=== PATIENT | male | born 1955 | race Two or more races ===

== ENCOUNTER 2024-04-21 11:34 | Inpatient (IN) | payer BC, MEDICAID ==
[~2024-04-21] VITALS: Ht 180.3 cm; Wt 147.4 kg
[~2024-04-21 11:34] MED LIST: IPRA0.00 IN; SEMA1INJ2 SC
--- NOTE | 2024-04-21 11:49 | ED.PDOC ---
GI ASSESSMENT HPI Comments HPI: Poor Historian. 67-year-old male brought in by ambulance from home for evaluation of two day history of right-sided abdominal pain with nausea but no vomiting. He had some brown diarrhea in the last two days as well. He stopped taking his Lasix two days ago. He said he forgot. Patient does not use oxygen at home. Pre- hospital course vital signs were stable. EKG rhythm run by EMS was also unremarkable. Last bowel movement was this morning brown in color. Past Medcial History: Hypertension hyperlipidemia, CHF Past Surgical History: REVIEW OF SYSTEMS: CONSTITUTIONAL: Denies acute: fever, diaphoresis, chills, HEAD: Denies acute: headache, photophobia Eyes: Denies acute: Double vision, vision loss, eye pain, eye discharge. EARS: Denies acute: tinnitus, hearing loss, ear discharge, ear pain, THROAT: Denies acute: sore throat, swelling, difficulty swallowing , pain with swallowing, change in voice. NECK: Denies acute: neck pain, neck swelling, stiff neck. HEART: Denies acute : chest pain, palpitations, LUNGS: Denies acute: SOB, wheezing, cough, hemoptysis ABDOMEN: Denies acute: , Vomiting, melena , hematemesis, hematochezia SKIN: Denies acute: rash, redness, lesions, itchiness. EXTREMITIES: Denies acute: calf pain, numbness, tingling, weakness, denies pain in extremity. Denies acute: Low back pain. Neuro: Denies acute: focal neurological deficit, motor or sensory focal neurological deficit, tremors, seizure like activity, confusion, dizziness, change in mental status, loss of bowel or bladder function, cauda equina like symptoms. : Denies acute: dysuria, hematuria, flank pain, increase in urinary frequency. PSYCH: Denies acute: hallucination, suicidal ideation, homicidal ideation. PHYSICAL EXAM: General: no acute distress, awake and alert. Head: normocephalic, atraumatic. Neck: supple, trachea is midline, no swelling. Throat: Normal phonation. Eyes:, no erythema, no purulent discharge, no proptosis, no icterus. Heart: regular rate, regular rhythm, no significant murmur appreciated. Lungs: no apparent respiratory distress, Able to speak in full sentences. No wheezing, no rhonchi, no crackles. No stridors Clear to auscultation bilaterally. Abdomen: non tender to palpation, non distended, soft, no guarding, no rebound, + bowel sounds. Neuro: Awake, Alert, oriented to name, self, situation, follows commands GCS=15. Speech is normal. Skin: no petechia, no purpura, no cyanosis, non-pale, not jaundice. Lower extremities: --trace b/l- Pitting edema no deformity, no focal swelling, no calf TTP. Makes eye contact. moves all four extremities. Face: no apparent facial droop. Chief Complaint: Abdominal Pain Time Seen by MD: 11:45 Reviewed Notes: Nurses Notes, Medications, Allergies Allergies: Coded Allergies: NO KNOWN ALLERGIES (Unverified , 04/21/24) Information Source: Patient Was a procedure done? Was a procedure done?: No GI differential Dx Differential Diagnosis: Other (DDX include but not limited to diverticulitis, colitis, gastroenteritis, acute abdomen, SBO, enteritis, constipation, volvulus, appendicitis, Gallbladder disease, choledocolithiasis, ascending cholangitis, pancreatitis, intraAbdominal mass/neoplasm, hepatitis, UTI, pylonephritis, kidney stone, aneurysm, dissection, Inflammatory bowel disease, gastroparesis, ischemic bowel.) X-Ray, Labs, Meds, VS Vital Signs Date Time Temp Pulse Resp B/P (MAP) Pulse Ox O2 Delivery O2 Flow Rate FiO2 04/21/24 18:00 97.6 66 20 145/84 (104) 96 97.6 04/21/24 13:23 118/58 04/21/24 12:52 98.6 62 17 118/58 (78) 95 98.6 04/21/24 12:52 62 17 95 Room Air 04/21/24 11:46 98.4 82 24 111/89 (96) 97 Lab Test 04/21/24 15:50 04/21/24 13:23 04/21/24 11:55 Range/Units Troponin I High Sensitivity 41 44 43 </=54 ng/L White Blood Count 10.1 4.4-10.8 10^3/uL Red Blood Count 5.24 4.5-5.90 10^6/uL Hemoglobin 15.7 13.5-17.5 g/dL Hematocrit 46.8 41.0-53.0 % Mean Corpuscular Volume 89.3 80.0-100.0 fL Mean Corpuscular Hemoglobin 29.9 28.0-32.0 pg Mean Corpuscular Hemoglobin Concent 33.5 32.0-36.0 g/dL Red Cell Distribution Width 14.9 H 11.8-14.3 % Platelet Count 274 140-450 10^3/uL Mean Platelet Volume 9.0 6.9-10.8 fL Neutrophils (%) (Auto) 65.9 37.0-80.0 % Lymphocytes (%) (Auto) 21.1 10.0-50.0 % Monocytes (%) (Auto) 6.8 0.0-12.0 % Eosinophils (%) (Auto) 5.3 0.0-7.0 % Basophils (%) (Auto) 0.9 0.0-2.0 % Neutrophils # (Auto) 6.7 1.6-8.6 10 ^3/uL Lymphocytes # (Auto) 2.1 0.4-5.4 10 ^3/uL Monocytes # (Auto) 0.7 0-1.3 10 ^3/uL Eosinophils # (Auto) 0.5 0-0.8 10 ^3/uL Basophils # (Auto) 0.1 0-0.2 10 ^3/uL Nucleated Red Blood Cells 0.1 % Sodium Level 138 136-145 mmol/L Potassium Level 4.7 3.5-5.1 mmol/L Chloride Level 104 98-107 mmol/L Carbon Dioxide Level 27 20-31 mmol/L Anion Gap 7 5-15 Blood Urea Nitrogen 24 H 9-23 mg/dL Creatinine 1.52 H 0.700-1.30 mg/dL Glomerular Filtration Rate Calc 50 >90 mL/min BUN/Creatinine Ratio 15.8 10.0-20.0 Serum Glucose 146 H 74-106 mg/dL Lactic Acid Level 1.4 0.4-2.0 mmol/L Calcium Level 9.9 8.7-10.4 mg/dL Total Bilirubin 0.7 0.2-1.0 mg/dL Aspartate Amino Transferase (AST) 25 13-40 U/L Alanine Aminotransferase (ALT) 21 7-40 U/L Alkaline Phosphatase 113 46-116 U/L B-Type Natriuretic Peptide 38.38 0-100 pg/mL Total Protein 7.7 5.7-8.2 g/dL Albumin 4.7 3.2-4.8 g/dL Lipase 61 H 12-53 U/L Current Medications Medications (Trade) Dose Ordered Sig/Ace Route Start Time Stop Time Status Last Admin Furosemide (Lasix Injection) 60 mg ONCE ONCE IV 04/21/24 11:45 04/21/24 11:47 DC 04/21/24 13:[address] [address] Ph: [phone] DIAGNOSTIC IMAGING Diagnostic Imaging Report : [id number] Signed PATIENT: VENKATA HANKS ACCT: [id number] UNIT: [id number] : 05/14/1956 LOC: ER ROOM / BED: / AGE / SEX: 67 / M ADM STATUS: REG ER SERVICE 1145 ORDERING PHYSICIAN: ZACK SANCHEZ DO PROCEDURE(s): ABPL - CT AB PEL WO CON-NO ORAL OR IV REASON: abd pain ORDER NUMBER(s): [id number], ACCESSION NUMBER(s): [id number] CT ABDOMEN AND PELVIS WITHOUT CONTRAST CLINICAL HISTORY: abd pain TECHNIQUE: Multiple contiguous axial images of the abdomen and pelvis without intravenous contrast. The images were reformatted degenerate coronal and sagittal reconstructions. All CT scans at this medical facility are performed using dose modulation techniques as appropriate to a performed exam including the following:Automated exposure control was utilized; adjustment of the MA and/or KV according to patient size; and use of iterative reconstruction technique. Radiation Dose Information: CT Dose: CTDI volume is 27.37 mGy. Dose-length product is 1696.35 mGy*cm Comparison: None FINDINGS: [Findings] Evaluation of the abdomen and pelvis is limited without intravenous contrast. There is also moderate motion artifact which limits evaluation. There are multiple dilated small bowel loops measuring up to 3.9 cm. Small-bowel loops are mostly fluid-filled with non dependent air-fluid levels. There is no obvious transition zone identified. The large bowel loops are not dilated and contain air. The gallbladder is surgically absent. The liver, pancreas, kidneys, adrenal glands, and spleen appear within normal limits. There is no gross evidence of abdominal lymphadenopathy. There is no free fluid or free air. The abdominal aorta and IVC appear within normal limits. The prostate gland does not appear significantly enlarged. Bladder demonstrates wall thickening which is asymmetrically greater along the posterior wall. There is a small left posterolateral bladder wall diverticulum. There are nonspecific punctate sub 6 mm nodule seen in the lower lungs. There is no acute osseous abnormality. IMPRESSION: 1. Multiple nonspecific fluid-filled dilated small bowel loops with nondependent air-fluid levels. There is no obvious transition zone identified. The large bowel loops are not dilated contain air. Findings May relate to partial obstruction versus ileus. 2. The bladder demonstrates wall thickening which is asymmetrically greater along the posterior wall. Consider further evaluation with cystoscopy for evaluation. 3. Small left posterolateral bladder wall diverticulum. 4. Nonspecific punctate sub 6 mm nodules in the visualized lower lungs. Further evaluation with dedicated CT chest is recommended. HS:Y ATED BY: SREEKANTH TRIVEDI MD DICTATED DATE/TIME: 04/21/24 1243 SIGNED BY: SREEKANTH TRIVEDI MD SIGNED DATE/TIME: 04/21/24 1243 CC: [place] [address] Ph: [phone] DIAGNOSTIC IMAGING Diagnostic Imaging Report : [id number] Signed PATIENT: VENKATA HANKS ACCT: [id number] UNIT: [id number] : 1955 LOC: ER ROOM / BED: / AGE / SEX: 68 / M ADM STATUS: REG ER SERVICE 1145 ORDERING PHYSICIAN: ZACK SANCHEZ DO PROCEDURE(s): CXRP - CHEST PORTABLE REASON: sob ORDER NUMBER(s): [id number], ACCESSION NUMBER(s): [id number] EXAM: XY CHEST PORTABLE Indication: sob Technique: Single frontal view of the chest was obtained Comparison: None FINDINGS: Lines and Tubes: None Lungs: Diffuse interstitial opacities. Pleura: No effusion. No pneumothorax. Cardiomediastinal contours: Unremarkable Bones: No acute osseous abnormality. IMPRESSION: Mild pulmonary vascular congestion. ATED BY: DEE DELGADO MD DICTATED DATE/TIME: 04/21/24 1411 SIGNED BY: DEE DELGADO MD SIGNED DATE/TIME: 04/21/24 1411 CC: Time of 1ST Reevaluation: 17:28 (The case was discussed with the admitting team (HPI, physical exam, labs and diagnostic tests that were available at the time of disposition, ED course, treatment plan) on the phone. They agreed to admit the patient to their service and assume care of this patient from this point forward. dr.. casey. ) Reevaluation 1ST: Unchanged Consultation: Surgery Patient Education/Counseling: Diagnosis, Treatment Family Education/Counseling: No Family Present Comments Patient presented with the above HPI.-abdominal pain----workup was initiated. patient was found with the above mentioned diagnosis. Patient was given: Lasix for history of CHF and medication noncompliance. Patient ED course and VS have been stabilized. Patient has been reassessed in the ED and remained in a stable condition. Pertinent incidental findings were discussed with the patient and/or family. Patient/family voices understanding and is agreeable with plan. Patient has been observed in the ED adequate length of time to insure improvement/stability. patient was admitted to the medicine team for further evaluation and treatment of their presentation. General surgery was consulted who agreed with our manag ement and agreed to follow up with the patient in consult. No further recommendations. All the reports of any imaging studies that were ordered by myself were reviewed by myself. Departure 1 Departure Time of Disposition: 15:41 Impression: Primary Impression: Partial small bowel obstruction Additional Impression: Pulmonary nodule Disposition: ADMITTED INPATIENT Admit to: [facility] Condition: Guarded Discharged With: Self Critical Care Note Critical Care Time?: No Heart Score Heart Score: Heart Score Response (Comments) Value History N/A 0 EKG N/A 0 Age N/A 0 Risk Factors N/A 0 Troponin N/A 0 Total 0 ZACK SANCHEZ DO Apr 21, 2024 11:49
[2024-04-21 12:10] LABS: Basophils # (auto) 0.1 10 ^3/uL (0-0.2); Basophils % (auto) 0.9 % (0.0-2.0); Eosinophils # (auto) 0.5 10 ^3/uL (0-0.8); Eosinophils % (auto) 5.3 % (0.0-7.0); Hematocrit 46.8 % (41.0-53.0); Hemoglobin 15.7 g/dL (13.5-17.5); Lymphocytes # (auto) 2.1 10 ^3/uL (0.4-5.4); Lymphocytes % (auto) 21.1 % (10.0-50.0); Mean Corpuscular Hemoglobin 29.9 pg (28.0-32.0); Mean Corpuscular Hgb Conc. 33.5 g/dL (32.0-36.0); Mean Corpuscular Volume 89.3 fL (80.0-100.0); Monocytes # (auto) 0.7 10 ^3/uL (0-1.3); Monocytes % (auto) 6.8 % (0.0-12.0); Neutrophils # (auto) 6.7 10 ^3/uL (1.6-8.6); Neutrophils % (auto) 65.9 % (37.0-80.0); Nucleated Red Blood Cells % 0.1 %; Platelet Count (auto) 274 10^3/uL (140-450); Red Blood Cells 5.24 10^6/uL (4.5-5.90); Red Cell Distribution Width 14.9 % (11.8-14.3); White Blood Cell 10.1 10^3/uL (4.4-10.8)
--- NOTE | 2024-04-21 12:44 | DVH ---
CT ABDOMEN AND PELVIS WITHOUT CONTRAST CLINICAL HISTORY: abd pain TECHNIQUE: Multiple contiguous axial images of the abdomen and pelvis without intravenous contrast. The images were reformatted degenerate coronal and sagittal reconstructions. All CT scans at this medical facility are performed using dose modulation techniques as appropriate t o a performed exam including the following:Automated exposure control was utilized; adjustment of the MA and/or KV according to patient size; and use of iterative reconstruction technique. Radiation Dose Information: CT Dose: CTDI volume is 27.37 mGy. Dose-length product is 1696.35 mGy*cm Comparison: None FINDINGS: [Findings] Evaluation of the abdomen and pelvis is limited without intravenous contrast. There is also moderate motion artifact which limits evaluation. There are multiple dilated small bowel loops measuring up to 3.9 cm. Small-bowel loops are mostly flu id-filled with non dependent air-fluid levels. There is no obvious transition zone identified. The la rge bowel loops are not dilated and contain air. The gallbladder is surgically absent. The liver, pancreas, kidneys, adrenal glands, and spleen [place] ear within normal limits. There is no gross evidence of abdominal lymphadenopathy. There is no free fluid or free air. The abdominal aorta and IVC appear within normal limits. The prostate gland does not appear significantly enlarged. Bladder demonstrates wall thickening which is asymmetrically greater along the posterior wall. There is a small left posterolateral bladder wal l diverticulum. There are nonspecific punctate sub 6 mm nodule seen in the lower lungs. There is no acute osseous abnormality. IMPRESSION: 1. Multiple nonspecific fluid-filled dilated small bowel loops with nondependent air-fluid levels. Th ere is no obvious transition zone identified. The large bowel loops are not dilated contain air. Fin dings May relate to partial obstruction versus ileus. 2. The bladder demonstrates wall thickening which is asymmetrically greater along the posterior wall. Consider further evaluation with cystoscopy for evaluation. 3. Small left posterolateral bladder wall diverticulum. 4. Nonspecific punctate sub 6 mm nodules in the visualized lower lungs. Further evaluation with dedic ated CT chest is recommended. HS:Y
[2024-04-21 13:21] LABS: Alanine Aminotransferase 21 U/L (7-40); Albumin 4.7 g/dL (3.2-4.8); Alkaline Phosphatase 113 U/L (46-116); Anion Gap 7 (5-15); Aspartate Aminotransferase 25 U/L (13-40); BUN/Creatinine Ratio 15.8 (10.0-20.0); Blood Urea Nitrogen 24 mg/dL (9-23); Calcium 9.9 mg/dL (8.7-10.4); Carbon Dioxide 27 mmol/L (20-31); Chloride 104 mmol/L (98-107); Glucose 146 mg/dL (74-106); Lipase 61 U/L (12-53); Potassium 4.7 mmol/L (3.5-5.1); Sodium 138 mmol/L (136-145)
[2024-04-21 13:22] LABS: Bilirubin, Total 0.7 mg/dL (0.2-1.0); Total Protein 7.7 g/dL (5.7-8.2)
[2024-04-21] MEDS: FUROSEMIDE 100 MG/10ML VIAL IV ONE (13:23)
--- NOTE | 2024-04-21 14:12 | DVH ---
EXAM: XY CHEST PORTABLE Indication: sob Technique: Single frontal view of the chest was obtained Comparison: None FINDINGS: Lines and Tubes: None Lungs: Diffuse interstitial opacities. Pleura: No effusion. No pneumothorax. Cardiomediastinal contours: Unremarkable Bones: No acute osseous abnormality. IMPRESSION: Mild pulmonary vascular congestion.
[2024-04-21] MEDS ORDERED: hydrALAZINE HCL 20 MG/ML VL IV PRN (18:30)
[2024-04-21] MEDS ORDERED: NITROGLYCERIN 0.4 MG SL TAB SL PRN (18:30)
[2024-04-21] MEDS ORDERED: MORPHINE SULFATE INJ 2 MG/ml SYRG IV PRN ×3 (18:30)
[2024-04-21] MEDS ORDERED: ONDANSETRON HCL 4 MG/2 ML VIAL IV PRN (18:30)
[2024-04-21 18:45] VITALS: BP 111/69; PULSE 66; RESP 20; TEMP 97.4; O2SAT 98
[2024-04-21] MEDS: D5W/SOD CHL 0.45% 1,000 ML IV SCH (19:15)
[2024-04-21 22:30] VITALS: PULSE 70; RESP 16; O2SAT 93
[2024-04-21] MEDS: FAMOTIDINE (10MG/ML) 2ML VL IV SCH (22:30)
--- NOTE | 2024-04-21 23:53 | DVH ---
CHEST RADIOGRAPH Indication: NG placement Technique: Single frontal view of the chest was obtained COMPARISON: XY CHEST PORTABLE on DOS: 04/21/24 FINDINGS: Lines and Tubes: Nasogastric tube courses into the direction of the GE junction with tip not clearly visualized. Lungs: Clear Pleura: No effusion. No pneumothorax. Cardiomediastinal contours: Unremarkable Bones: Unremarkable IMPRESSION: 1. Nasogastric tube courses into the direction of the GE junction with tip not clearly visualized. Re commend repeat x-ray chest to identify the tip.
--- NOTE | 2024-04-22 00:16 | DVHHP2 ---
Admitting Diagnosis: Partial small bowel obstruction History of Present Illness History Source: Patient Exam Limitations: No limitations HPI 68 yo male with known history of hypertension, hyperlipidemia, CHF presents to the hospital with abdominal pain, nausea, vomiting. Patient reports brown emesis contents and diarrhea. Patient denies fevers, chills. Patient CT abdomen/pelvis wo resulted : 1. Multiple nonspecific fluid-filled dilated small bowel loops with nondependent air-fluid levels. There is no obvious transition zone identified. The large bowel loops are not dilated contain air. Findings May relate to partial obstruction versus ileus. 2. The bladder demonstrates wall thickening which is asymmetrically greater along the posterior wall. Consider further evaluation with cystoscopy for evaluation. 3. Small left posterolateral bladder wall diverticulum. 4. Nonspecific punctate sub 6 mm nodules in the visualized lower lungs. Further evaluation with dedicated CT chest is recommended. Patient admitted for further evaluation. Past Medical History Cardiac: CHF, HTN, Hyperlipidemia Pulmonary: No pertinent Hx Central Nervous System: No pertinent Hx GI: No pertinent Hx Hemotology/Oncology: No pertinent Hx Hepatobiliary: No pertinent Hx Psychiatric: No pertinent Hx Musculoskeletal: No pertinent Hx Rheumotologic: No pertinent Hx Infectious Disease: No peritnent Hx ENT: No pertinent Hx Renal/: No pertinent Hx Endocrine: No pertinent Hx Dermatology: No pertinent Hx Smoker: No Hx (Negative) Alocohol: None Drugs: None Lives with: With family Domestic Violence: Neg Review of Systems Constitutional: No symptom reported Ears, Nose, & Throat: No symptom reported Eyes: No symptom reported Pulmonary/Respiratory: No symptom reported Cardiovascular: No symptom reported Gastrointestinal: Nausea, Vomiting, Abdominal Pain Genitourinary: No symptom reported Musculoskeletal: No symptom reported Skin: No symptom reported Psychiatric: No symptom reported Endocrine: No symptom reported Hemotologic/Lymphatic: No symptom reported H&P Exam Vital Signs Vital Signs Date Time Temp Pulse Resp B/P (MAP) Pulse Ox O2 Delivery O2 Flow Rate FiO2 04/21/24 22:30 70 16 127/67 (87) 93 04/21/24 22:30 Room Air* 2 N/A Nasal Cannula* 04/21/24 18:45 97.4 97.4 General Appeara: Well developed, Well nourished, Normal Appearance Head Exam: Normal inspection Neck Exam: Normal inspection, Non-tender, Normal alignment Eye Exam: bilateral eye Normal inspection, bilateral eye PERRL, bilateral eye EOMI Ear Exam: bilateral ear Auricle normal Nasal Exam: Normal inspection Mouth: Normal Inspection Pulmonary/Respiratory: Normal inspection, Normal breath sounds, Chest non- tender, Lungs clear Cardiovascular/Chest: Normal inspection, Regular rate, Normal Rhythm Peripheral Pulses: 2+ dorsalis pedis (R), 2+ dorsalis pedis (L), 2+ Radial (R), 2+ Radial (L) Abdominal Exam: Soft, Other (hypoactive bowel sounds, abdominal distention ) Rectal Exam: Deferred NECK CUTTER Exam: Normal hearing, Normal speech, PERRL Neuro/Mental St: Alert, Oriented Appearance: Appropriate appearance, Appropriate insight Eye contact/ Speech: Cooperative, Good eye contact, Normal speech Thoughts/Psych: Normal thought pattern Skin Exam: Normal inspection, Normal color, Warm/dry Labs/Xrays Labs Test 04/21/24 15:50 04/21/24 11:55 Range/Units Troponin I High Sensitivity 41 </=54 ng/L White Blood Count 10.1 4.4-10.8 10^3/uL Red Blood Count 5.24 4.5-5.90 10^6/uL Hemoglobin 15.7 13.5-17.5 g/dL Hematocrit 46.8 41.0-53.0 % Mean Corpuscular Volume 89.3 80.0-100.0 fL Mean Corpuscular Hemoglobin 29.9 28.0-32.0 pg Mean Corpuscular Hemoglobin Concent 33.5 32.0-36.0 g/dL Red Cell Distribution Width 14.9 H 11.8-14.3 % Platelet Count 274 140-450 10^3/uL Mean Platelet Volume 9.0 6.9-10.8 fL Neutrophils (%) (Auto) 65.9 37.0-80.0 % Lymphocytes (%) (Auto) 21.1 10.0-50.0 % Monocytes (%) (Auto) 6.8 0.0-12.0 % Eosinophils (%) (Auto) 5.3 0.0-7.0 % Basophils (%) (Auto) 0.9 0.0-2.0 % Neutrophils # (Auto) 6.7 1.6-8.6 10 ^3/uL Lymphocytes # (Auto) 2.1 0.4-5.4 10 ^3/uL Monocytes # (Auto) 0.7 0-1.3 10 ^3/uL Eosinophils # (Auto) 0.5 0-0.8 10 ^3/uL Basophils # (Auto) 0.1 0-0.2 10 ^3/uL Nucleated Red Blood Cells 0.1 % Sodium Level 138 136-145 mmol/L Potassium Level 4.7 3.5-5.1 mmol/L Chloride Level 104 98-107 mmol/L Carbon Dioxide Level 27 20-31 mmol/L Anion Gap 7 5-15 Blood Urea Nitrogen 24 H 9-23 mg/dL Creatinine 1.52 H 0.700-1.30 mg/dL Glomerular Filtration Rate Calc 50 >90 mL/min BUN/Creatinine Ratio 15.8 10.0-20.0 Serum Glucose 146 H 74-106 mg/dL Lactic Acid Level 1.4 0.4-2.0 mmol/L Calcium Level 9.9 8.7-10.4 mg/dL Total Bilirubin 0.7 0.2-1.0 mg/dL Aspartate Amino Transferase (AST) 25 13-40 U/L Alanine Aminotransferase (ALT) 21 7-40 U/L Alkaline Phosphatase 113 46-116 U/L B-Type Natriuretic Peptide 38.38 0-100 pg/mL Total Protein 7.7 5.7-8.2 g/dL Albumin 4.7 3.2-4.8 g/dL Lipase 61 H 12-53 U/L Assessment/Plan Problem List: (1) Partial small bowel obstruction Plan 68 yo male with known history of hypertension, hyperlipidemia, CHF presents to the hospital with abdominal pain 1. Partial small bowel obstruction -admit med surgical unit -General surgeon consultation, IV fluids, NPO -NGT to LIS -GI ppx Pepcid IV Discussed all above with patient who verbalizes agreement and understanding of care plan. All questions were answered. Discussed assessment and care plan with supervising and admitting MD Dr. [place]. Plan discussed with: Patient, Other Code Visit Code Visit Total Time (mins): 45 Additional Comments Additional Comments Additional Comments Patient's chart is reviewed and evaluated today. Patient is evaluated and admitted by nurse practitioner this morning. I agree with the nurse practitioner's evaluation, documentation, assessment and care plan as outlined. ESTELA DELANEY Apr 22, 2024 00:16 CHINO RIVERA MD Apr 22, 2024 16:43
--- NOTE | 2024-04-22 00:37 | DVH ---
CHEST RADIOGRAPH Indication: NGT ADVANCED Technique: Single frontal view of the chest was obtained COMPARISON: XY CHEST XRAY 1 VIEW on DOS: 04/21/24, XY CHEST PORTABLE on DOS: 04/21/24 FINDINGS: Lines and Tubes: Nasogastric tube tip is now overlying the gastric body. Lungs: Clear Pleura: No effusion. No pneumothorax. Cardiomediastinal contours: Unremarkable Bones: Unremarkable IMPRESSION: 1. Nasogastric tube is adequately placed in the stomach.
[2024-04-22 05:07] LABS: Chloride 108 mmol/L (98-107); Potassium 4.1 mmol/L (3.5-5.1); Sodium 138 mmol/L (136-145)
[2024-04-22 05:08] LABS: Anion Gap 10 (5-15); Carbon Dioxide 20 mmol/L (20-31)
[2024-04-22 05:09] LABS: Calcium 9.6 mg/dL (8.7-10.4)
[2024-04-22 05:13] LABS: BUN/Creatinine Ratio 17.4 (10.0-20.0); Blood Urea Nitrogen 27 mg/dL (9-23); Glucose 110 mg/dL (74-106)
[2024-04-22] MEDS: GASTROGRAFIN 120 ML SOL ONE (07:48)
[2024-04-22 07:58] VITALS: PULSE 74; RESP 17; O2SAT 96
--- NOTE | 2024-04-22 12:01 | DVH ---
Procedure: XY SMALL BOWEL SERIES-W GASTROGRA Reason for study/Clinical History: partial SBO Comparison Study: None available at time of dictation. Technique: Single contrast small bowel series performed. FINDINGS/IMPRESSION: Initial echometer engineer view of the abdomen and pelvis appears demonstrates nonspecific bowel-gas pattern. Contrast is identified within the colon by 3 hours. This represents a significant delay in small bow el transit time. Clinical correlation advised.
--- NOTE | 2024-04-22 16:08 | DVHINCON2 ---
Date of service: Apr 22, 2024 History of Present Illness 68 yo male with abd pain, diarrhea and vomiting. pt has lower abd pain. states he has not had abd surgeries in past. pt has chf, htn hpl Past Medical History htn hpl, chf Past Surgical History denies abd surgeries Allergies: Coded Allergies: NO KNOWN ALLERGIES (Unverified , 04/21/24) Current Medications Current Medications Medications (Trade) Dose Ordered Sig/Ace Route PRN Reason Start Time Stop Time Status Last Admin Nitroglycerin (Ntrostat Sublingual) 0.4 mg Q5MINP PRN SL FOR CHEST PAIN 04/21/24 18:30 Morphine Sulfate 2 mg Q30M PRN IV FOR CHEST PAIN 04/21/24 18:30 Ondansetron HCl (Zofran) 4 mg Q4HPRN PRN IV NAUSEA / VOMITING 04/21/24 18:30 Morphine Sulfate 2 mg Q4HPRN PRN IV SEVERE PAIN (7-10 PAIN SCALE) 04/21/24 18:30 Morphine Sulfate 1 mg Q4HP PRN IV MODERATE PAIN (4-6 PAIN SCALE) 04/21/24 18:30 Famotidine (Pepcid Injection) 20 mg Q12HR IV 04/21/24 22:00 04/22/24 10:42 Hydralazine HCl (Apresoline Injection) 10 mg Q6HP PRN IV SBP>150 04/21/24 18:30 Dextrose/Sodium Chloride 1,000 ml @ 75 mls/hr [id number] IV 04/21/24 18:30 04/21/24 19:15 Review of Systems neg unless mentioned in hpi Vital Signs Vital Signs Date Time Temp Pulse Resp B/P (MAP) Pulse Ox O2 Delivery O2 Flow Rate FiO2 04/22/24 15:34 77 16 129/72 (91) 95 04/22/24 07:58 Nasal Cannula* 4 36 04/22/24 07:58 98.3 98.3 Physical Exam gen; aaox3,nad cvs; [id number] lung; normal effort abd; soft nd mildly distended, nttp, no r r g ext; no edema Labs/Diagnostic Data Labs Test 04/22/24 03:59 04/21/24 15:50 04/21/24 11:55 Range/Units Sodium Level 138 136-145 mmol/L Potassium Level 4.1 3.5-5.1 mmol/L Chloride Level 108 H 98-107 mmol/L Carbon Dioxide Level 20 20-31 mmol/L Anion Gap 10 5-15 Blood Urea Nitrogen 27 H 9-23 mg/dL Creatinine 1.55 H 0.700-1.30 mg/dL Glomerular Filtration Rate Calc 49 >90 mL/min BUN/Creatinine Ratio 17.4 10.0-20.0 Serum Glucose 110 H 74-106 mg/dL Calcium Level 9.6 8.7-10.4 mg/dL Troponin I High Sensitivity 41 </=54 ng/L White Blood Count 10.1 4.4-10.8 10^3/uL Red Blood Count 5.24 4.5-5.90 10^6/uL Hemoglobin 15.7 13.5-17.5 g/dL Hematocrit 46.8 41.0-53.0 % Mean Corpuscular Volume 89.3 80.0-100.0 fL Mean Corpuscular Hemoglobin 29.9 28.0-32.0 pg Mean Corpuscular Hemoglobin Concent 33.5 32.0-36.0 g/dL Red Cell Distribution Width 14.9 H 11.8-14.3 % Platelet Count 274 140-450 10^3/uL Mean Platelet Volume 9.0 6.9-10.8 fL Neutrophils (%) (Auto) 65.9 37.0-80.0 % Lymphocytes (%) (Auto) 21.1 10.0-50.0 % Monocytes (%) (Auto) 6.8 0.0-12.0 % Eosinophils (%) (Auto) 5.3 0.0-7.0 % Basophils (%) (Auto) 0.9 0.0-2.0 % Neutrophils # (Auto) 6.7 1.6-8.6 10 ^3/uL Lymphocytes # (Auto) 2.1 0.4-5.4 10 ^3/uL Monocytes # (Auto) 0.7 0-1.3 10 ^3/uL Eosinophils # (Auto) 0.5 0-0.8 10 ^3/uL Basophils # (Auto) 0.1 0-0.2 10 ^3/uL Nucleated Red Blood Cells 0.1 % Lactic Acid Level 1.4 0.4-2.0 mmol/L Total Bilirubin 0.7 0.2-1.0 mg/dL Aspartate Amino Transferase (AST) 25 13-40 U/L Alanine Aminotransferase (ALT) 21 7-40 U/L Alkaline Phosphatase 113 46-116 U/L B-Type Natriuretic Peptide 38.38 0-100 pg/mL Total Protein 7.7 5.7-8.2 g/dL Albumin 4.7 3.2-4.8 g/dL Lipase 61 H 12-53 U/L Assessment 68 yo male with psbo Plan/Recommendation npo ngt to lis ivf sbft if sbft is neg start CLD and advance diet as graeme once pt has bm further recs to follow Plan discussed with: Other (nurse) BISHOP BROOKE MD Apr 22, 2024 16:07
[2024-04-22 17:53] VITALS: PULSE 72; RESP 18; O2SAT 97
[2024-04-22] MEDS ORDERED: METO-289 PO (18:18)
[2024-04-22] MEDS ORDERED: LISI20TA56 PO (18:18)
[2024-04-22] MEDS ORDERED: ATOR20TA50 PO (18:18)
[2024-04-22] MEDS ORDERED: FURO40TA4 PO (18:18)
[2024-04-22] MEDS ORDERED: IBUP-1455 PO (18:18)
[2024-04-22] MEDS ORDERED: APIX5TAB PO (18:27)
[2024-04-22 20:00] VITALS: PULSE 80; RESP 18; O2SAT 96
[2024-04-22 21:00] VITALS: BP 119/74; PULSE 72; RESP 19; TEMP 97.9; O2SAT 97
[2024-04-23 05:00] VITALS: BP 115/46; PULSE 70; RESP 20; TEMP 97.1; O2SAT 97
[2024-04-23 09:17] VITALS: BP 119/73; PULSE 64; RESP 16; TEMP 97.6; O2SAT 94
[2024-04-23] MEDS ORDERED: HYDROcodone-ACET 5/325MG TAB PO PRN (11:15)
[2024-04-23] MEDS: HYDROcodone-ACET 5/325MG TAB PO ONE (12:31)
[2024-04-23 12:35] VITALS: BP 141/73; PULSE 66; RESP 12; TEMP 97.4; O2SAT 95
[2024-04-23] MEDS ORDERED: FAMO-161 PO (16:23)
[2024-04-23] MEDS ORDERED: IBUP-1455 PO (16:23)
[2024-04-23] MEDS ORDERED: METR-344 PO (16:23)
--- NOTE | 2024-04-23 16:24 | DVHDS2 ---
Discharge Summary Date of Admission Apr 21, 2024 at 18:24 Date of Discharge: Apr 23, 2024 Labs/Diagnostic Data: Laboratory Results Test 04/22/24 03:59 04/21/24 15:50 04/21/24 11:55 Sodium Level 138 mmol/L (136-145) Potassium Level 4.1 mmol/L (3.5-5.1) Chloride Level 108 mmol/L (98-107) Carbon Dioxide Level 20 mmol/L (20-31) Anion Gap 10 (5-15) Blood Urea Nitrogen 27 mg/dL (9-23) Creatinine 1.55 mg/dL (0.700-1.30) Glomerular Filtration Rate Calc 49 mL/min (>90) BUN/Creatinine Ratio 17.4 (10.0-20.0) Serum Glucose 110 mg/dL (74-106) Calcium Level 9.6 mg/dL (8.7-10.4) Troponin I High Sensitivity 41 ng/L (</=54) White Blood Count 10.1 10^3/uL (4.4-10.8) Red Blood Count 5.24 10^6/uL (4.5-5.90) Hemoglobin 15.7 g/dL (13.5-17.5) Hematocrit 46.8 % (41.0-53.0) Mean Corpuscular Volume 89.3 fL (80.0-100.0) Mean Corpuscular Hemoglobin 29.9 pg (28.0-32.0) Mean Corpuscular Hemoglobin Concent 33.5 g/dL (32.0-36.0) Red Cell Distribution Width 14.9 % (11.8-14.3) Platelet Count 274 10^3/uL (140-450) Mean Platelet Volume 9.0 fL (6.9-10.8) Neutrophils (%) (Auto) 65.9 % (37.0-80.0) Lymphocytes (%) (Auto) 21.1 % (10.0-50.0) Monocytes (%) (Auto) 6.8 % (0.0-12.0) Eosinophils (%) (Auto) 5.3 % (0.0-7.0) Basophils (%) (Auto) 0.9 % (0.0-2.0) Neutrophils # (Auto) 6.7 10 ^3/uL (1.6-8.6) Lymphocytes # (Auto) 2.1 10 ^3/uL (0.4-5.4) Monocytes # (Auto) 0.7 10 ^3/uL (0-1.3) Eosinophils # (Auto) 0.5 10 ^3/uL (0-0.8) Basophils # (Auto) 0.1 10 ^3/uL (0-0.2) Nucleated Red Blood Cells 0.1 % Lactic Acid Level 1.4 mmol/L (0.4-2.0) Total Bilirubin 0.7 mg/dL (0.2-1.0) Aspartate Amino Transferase (AST) 25 U/L (13-40) Alanine Aminotransferase (ALT) 21 U/L (7-40) Alkaline Phosphatase 113 U/L (46-116) B-Type Natriuretic Peptide 38.38 pg/mL (0-100) Total Protein 7.7 g/dL (5.7-8.2) Albumin 4.7 g/dL (3.2-4.8) Lipase 61 U/L (12-53) Other Laboratory Tests 04/22/24 03:59 04/21/24 11:55 Brief Hx & Hospital Course: 68 yo male with known history of hypertension, hyperlipidemia, CHF presents to the hospital with abdominal pain, nausea, vomiting. Patient reports brown emesis contents and diarrhea. Patient denies fevers, chills. Patient CT abdomen/pelvis wo resulted : 1. Multiple nonspecific fluid-filled dilated small bowel loops with nondependent air-fluid levels. There is no obvious transition zone identified. The large bowel loops are not dilated contain air. Findings May relate to partial obstruction versus ileus. 2. The bladder demonstrates wall thickening which is asymmetrically greater along the posterior wall. Consider further evaluation with cystoscopy for evaluation. 3. Small left posterolateral bladder wall diverticulum. 4. Nonspecific punctate sub 6 mm nodules in the visualized lower lungs. Further evaluation with dedicated CT chest is recommended. Patient admitted for further evaluation. He is admitted and evaluated by general surgeon. Patient treated supportively with IV fluids NPO NG tube decompression. Patient is subsequently underwent a small-bowel follow-through study and patient is having bowel movements. NG tube is removed. Tolerating diet. Abdominal pain is resolved. Therefore it is felt he could be safely discharged home. I have talked with the patient and his family members at bedside regarding his hospital diagnosis, treatment he received, discharge instructions and follow-up plan of care. They have verbalized understanding of these and agree with the discharge care plan. Consults/Reason for consult Assessment 68 yo male with psbo Plan/Recommendation npo ngt to lis ivf sbft if sbft is neg start CLD and advance diet as graeme once pt has bm further recs to follow Plan discussed with: Other (nurse) SREEKANTH BROOKE MD Apr 22, 2024 16:07 Condition at Discharge: Stable Final Diagnosis/Problems List Acute gastroenteritis, partial SBO versus ileus Discharge Disposition: Home Discharge Instruct/Medications Diet: Consistent carbohydrate, Cardiac 2g Na,low cholest Diet comment: Full liquid diet including soups and broths for next 48 hours then regular diet Activity: No Restrictions, As Tolerated Follow Up/Referral: Dr. Sreekanth Brooke surgeon after two weeks follow up abdominal discomfort Medications: As prescribed and home medications New Medications: Famotidine (Pepcid AC) 20 Mg Tab 20 MG PO DAILY, #20 TAB Metronidazole (Flagyl) 500 Mg Tab 1 TAB PO BID, #10 TAB Continued Medications: Apixaban Base (Eliquis) 5 Mg Tab 1 TAB PO BID Atorvastatin Calcium (Atorvastatin Calcium) 20 Mg Tab 1 TAB PO DAILY Furosemide (Furosemide) 40 Mg Tab 1 TAB PO BID Ibuprofen Micronized (Ibuprofen) 800 Mg Tab 1 TAB PO TID, #14 TAB (This prescription has been renewed) Ipratropium-Albuterol (Ipratropium [place]/Albut) 1 Rukhsana Rukhsana 1 VIAL IN TID PRN for 40 Days, #180 Lisinopril (Lisinopril) 20 Mg Tab 1 TAB PO DAILY Metoprolol Succinate (Metoprolol Succinate Er) 50 Mg Tab 1 TAB PO DAILY Semaglutide (Ozempic) 8 Mg/3 Ml Inj 2 MG SC QWEEKLY for 28 Days, #3 Discharge Statement: "Patient was advised to return to the ER or call 911 if any headaches, dizziness, shortness of breath, chest pain, abdominal pain, bleeding, fevers, or worsening of medical condition. Patient was counseled about treatment plan, medications, possible side effects, patientverbalized understanding. All questions were answered to the best of my ability. This discharge took greater then 30 minutes in planning, reviewing documentation, counseling the patient, and discussing with other team members." ASSESSMENT ASSESSMENT Assessment Acute gastroenteritis, partial SBO versus ileus CHINO RIVERA MD Apr 23, 2024 16:24
[2024-04-23 17:02] VITALS: BP 145/84; PULSE 64; RESP 19; TEMP 98.7; O2SAT 94
--- NOTE | 2024-04-23 17:22 | DVHPN2 ---
Progress Note Date Seen: Apr 23, 2024 Medical Necessity Reason Pt with a Central, PICC or Fol: No Subjective Patient reports: Feels better (had multiple bm) Review of Systems: HEENT:Normal, CVS:Normal, RESPIRATORY:Normal, GI:Normal, :Normal, MSK:Normal, NEURO:Normal Objective vital signs Vital Sign Date Time Temp Pulse Resp B/P (MAP) Pulse Ox O2 Delivery O2 Flow Rate FiO2 04/23/24 17:02 98.7 64 19 145/84 (104) 94 98.7 04/22/24 20:00 Nasal Cannula* 4 36 Total Intake and Output 04/22/24 04/22/24 04/23/24 15:00 23:00 07:00 Intake Total 600 ml 150 ml 700 ml Balance 600 ml 150 ml 700 ml medications Current Medications Medications Dose Ordered Sig/Ace Route Start Time Stop Time Status Last Admin Dose Admin Nitroglycerin 0.4 mg Q5MINP PRN SL 04/21/24 18:30 Morphine Sulfate 2 mg Q30M PRN IV 04/21/24 18:30 Ondansetron HCl 4 mg Q4HPRN PRN IV 04/21/24 18:30 Hydralazine HCl 10 mg Q6HP PRN IV 04/21/24 18:30 Acetaminophen/ Hydrocodone Bitart 1 tab Q4HPRN PRN PO 04/23/24 11:15 Examination gen; aaox3,nad cvs; [id number] lung; normal effort abd; soft nd nttp ext; no edema laboratory and microbiology Laboratory Tests 04/22/24 03:59 04/21/24 11:55 Test 04/22/24 03:59 Range/Units Serum Glucose 110 H 74-106 mg/dL Problem List/Assessment/Plan Problem List/Assessment/Plan 68 yo male with psbo resolving cld adv as tolerated limit narcotics Plan discussed with: Patient BISHOP BROOKE MD Apr 23, 2024 17:21
[2024-04-23 18:32] VITALS: BP 118/58; TEMP 37.1
== END 2024-04-23 19:07 | disposition home or self-care (01) | DRG 392 ==
LOC: ER 11:34 → EDBD 11:34 → OVERFLOW 18:24 → UNDODISIN 04-22 17:51 → WEST WING 04-22 18:37
PROVIDERS: ADMIT Hospitalist; ATTEND Hospitalist
PROC: 0D9670Z Drainage of Stomach with Drainage Device, Via Natural or Artificial Opening (ICD-10-PCS; principal; 2024-04-23)
DX: A08.4 Viral intestinal infection, unspecified (principal); K56.600 Partial intestinal obstruction, unspecified as to cause; K56.7 Ileus, unspecified; E78.5 Hyperlipidemia, unspecified; R91.1 Solitary pulmonary nodule; I50.9 Heart failure, unspecified; I11.0 Hypertensive heart disease with heart failure; N18.2 Chronic kidney disease, stage 2 (mild)
CPT/HCPCS: 36415; 71045; 74176; 74250; 80048; 80053; 83605; 83690; 83880; 84484; 85025; 96374; G0378; J3490

== ENCOUNTER 2024-08-28 20:22 | Inpatient (IN) | payer BC, MEDICAID ==
[~2024-08-28] VITALS: Ht 180.3 cm; Wt 164.1 kg
[2024-08-28] MEDS: VASOPRESSIN 20 UNITS in SODIUM CHL 0.9% 99 ML IV SCH
[~2024-08-28 20:22] MED LIST changes: +APIX5TAB PO; +ATOR20TA50 PO; +FAMO-161 PO; +FURO40TA4 PO; +IBUP-1455 PO; +LISI20TA56 PO; +METO-289 PO; +METR-344 PO
[2024-08-28 20:45] VITALS: PULSE 105; O2SAT 92
[2024-08-28] MEDS: SODIUM CHLORIDE 0.9% 1,000 ML IV ONE (20:50)
--- NOTE | 2024-08-28 20:57 | ED.PDOC ---
History of Present Illness HPI Comments 69-year-old male came to ER via EMS for dizziness. Per EMS, patient was picked up at home, has history of hypertension, dyslipidemia and CHF. Had the ground level fall 5 days ago, and landed badly on the left side of his chest. Noted bruising and tenderness on that area. Few hours ago, patient started complaining of dizziness and headaches, and was diaphoretic on scene. Patient also complaining of dysuria and urinary frequency. Upon arrival of paramedics, patient was hypotensive at 83/41 mmHg, saturating at 91% on room air and slightly febrile at 100.3 F Chief Complaint: Dizziness Time Seen by MD: 20:57 Reviewed Notes: Nurses Notes Allergies: Coded Allergies: NO KNOWN ALLERGIES (Unverified , 04/21/24) Home Meds Active Scripts Metronidazole (Flagyl) 500 Mg Tab, 1 TAB PO BID, #10 TAB Prov:CHINO RIVERA MD 04/23/24 Famotidine (Pepcid AC) 20 Mg Tab, 20 MG PO DAILY, #20 TAB Prov:CHINO RIVERA MD 04/23/24 Ibuprofen Micronized (Ibuprofen) 800 Mg Tab, 1 TAB PO TID, #14 TAB Prov:CHINO RIVERA MD 04/23/24 Reported Medications Ipratropium-Albuterol (Ipratropium [place]/Albut) 1 Rukhsana Rukhsana, 1 VIAL IN TID PRN for 40 Days, #180 04/23/24 Semaglutide (Ozempic) 8 Mg/3 Ml Inj, 2 MG SC QWEEKLY for 28 Days, #3 04/22/24 Apixaban Base (ELIQUIS) 5 Mg Tab, 1 TAB PO BID 04/22/24 Lisinopril (Lisinopril) 20 Mg Tab, 1 TAB PO DAILY 04/22/24 Metoprolol Succinate (Metoprolol Succinate Er) 50 Mg Tab, 1 TAB PO DAILY 04/22/24 Atorvastatin Calcium (ATORVASTATIN CALCIUM) 20 Mg Tab, 1 TAB PO DAILY 04/22/24 Furosemide (Furosemide) 40 Mg Tab, 1 TAB PO BID 04/22/24 Information Source: Patient, Emergency Med Personnel Mode of Arrival: EMS Severity: Moderate Timing: Hours Duration: Since onset Prehospital treatment: 12 Lead EKG, Oxygen Past Medical History PAST MEDICAL HISTORY: CHF, High Lipids, HTN Past Medical History (Other): Small bowel obstruction Surgical History: Denies all surgeries Family History Family History: Reviewed,noncontributory to illness Social History Smoker: Non-Smoker Alcohol: Denies ETOH Use Drugs: Denies Drug Use Lives In: Home Constitutional: reports: diaphoresis, fatigue; denies: chills, fever, malaise, sweats, weakness, others EENTM: denies: blurred vision, double vision, ear bleeding, ear discharge, ear drainage, ear pain, ear ringing, eye pain, eye redness, hearing loss, mouth pain, mouth swelling, nasal discharge, nose bleeding, nose congestion, nose pain, photophobia, tearing, throat pain, throat swelling, voice changes, others Respiratory: reports: shortness of breath; denies: cough, hemoptysis, orthopnea, SOB at rest, SOB with excertion, stridor, wheezing, others Cardiovascular: reports: dizzy spells; denies: chest pain, diaphoresis, Dyspnea on exertion, edema, irregular heart beat, left arm pain, lightheadedness, palp itations, PND, syncope, others Gastrointestinal: denies: abdomen distended, abdominal pain, blood streaked bowels, constipated, diarrhea, dysphagia, difficulty swallowing, hematemesis, melena, nausea, poor appetite, poor fluid intake, rectal bleeding, rectal pain, vomiting, others Genitourinary: reports: dysuria, frequency; denies: burning, flank pain, hematuria, incontinence, penile discharge, penile sore, pain, testicle pain, testicle swelling, urgency, others Neurological: reports: dizziness, headache; denies: fainting, left sided numbness, left sided weakness, numbness, paresthesia, pre-existing deficit, ri ght sided numbness, right sided weakness, seizure, speech problems, tingling, tremors, weakness, others Musculoskeletal: denies: back pain, gout, joint pain, joint swelling, muscle pain, muscle stiffness, neck pain, others Integumetry: denies: bruises, change in color, change in hair/nails, dryness, laceration, lesions, lumps, rash, wounds, others Hematologic/Lymphatic: denies: anemia, blood clots, easy bleeding, easy bruising, swollen glands, others Endocrine: denies: excessive hunger, excessive sweating, excessive thirst, excessive urination, flushing, intolerance to cold, intolerance to heat, unexplained weight gain, unexplained weight loss, others Psychiatric: denies: anxiety, bipolar disorder, depression, hopeless, panic disorder, schizophrenia, sleepless, suicidal, others Physical Exam General Appearance: Moderate Distress HEENT: Normal ENT Inspection, Pharynx Normal, TMs Normal Neck: Full Range of Motion, Non-Tender, Normal, Normal Inspection Respiratory: Chest Non-Tender, Lungs Clear, No Accessory Muscle Use, No Respiratory Distress, Normal Breath Sounds Cardiovascular: No Edema, No JVD, No Murmur, No Gallop, Normal Peripheral Pulses, Regular Rate/Rhythm Breast Exam: Deferred Gastrointestinal: No Organomegaly, Non Tender, No Pulsatile Mass, Normal Bowel Sounds, Soft Genitalia: Deferred Pelvic: Deferred Rectal: Deferred Extremities: No calf tenderness, Normal capillary refill, Normal inspection, No rmal range of motion, Non-tender, No pedal edema Musculoskeletal : Apperance: Normal Neurologic: Alert, stamp mounter II-XII nml as Tested, No Motor Deficits, Normal Affect, Normal Mood, No Sensory Deficits Cerebellar Function: Normal Reflexes: Normal Skin: Dry, Normal Color, Warm Lymphatic: No Adenopathy Was a procedure done? 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: Attending Physician Indication: Hypotension, Volume resuscitation Room prepared for procedure: Yes Sales Attendant Building [employer] performed hand hygien: Yes Maximal sterile barrier precau: Mask/Eye shield, Sterile gown, Cap, Sterlie gloves, Large sterlie drape Skin Preparation: Providine iodine Skin preparation completely dr: Yes Insertion site: Right, Femoral Central line catheter type: Tunneled- not dialysis Central line exchanged over a: Yes Antiseptic ointment applied to: Yes Post Assessment: Chest X-Ray Informed consent obtained: Yes Risks/benefits/alt described: Yes Intubation Indication: Respiratory Insufficiency, Altered Mental Status, Airway Protection Prep: Preoxygenation Pretreated with: Sedation Medicated with: Other (Etomidate rocuronium) Intubation Approach: Orotracheal Intubation size: cm (8.0) Informed consent obtained: Yes Risks/benefits/alt described: Yes EKG EKG : Pulse Rate (adult): 76 Cardiac Rhythm: NSR Differential Dx Considerations may include: Anemia, electrolyte imbalance, congestive heart failure, sepsis, hypotension X-Ray, Labs, Meds, VS Vital Signs Date Time Temp Pulse Resp B/P (MAP) Pulse Ox O2 Delivery O2 Flow Rate FiO2 08/29/24 01:15 89/41 08/29/24 00:25 69 18 77/23 (41) 94 100 08/28/24 22:53 76 08/28/24 22:30 72 18 104/56 (72) 97 100 08/28/24 22:07 74 08/28/24 21:30 63/35 08/28/24 21:09 98.0 08/28/24 20:27 76 08/28/24 20:22 100.3 74 20 93/39 (57) 96 100.3 Lab Test 08/28/24 23:31 08/28/24 23:20 08/28/24 22:50 08/28/24 21:40 Range/Units Troponin I High Sensitivity 67 *H 60 *H </=54 ng/L Blood Gas Specimen Type Arterial Blood Gas Sample Site Right radial Blood Gas Patient Temperature 37.0 Arterial Blood Date Drawn [id number] Arterial Blood pH 7.252 L 7.350-7.450 Arterial Blood Partial Pressure CO2 48.2 H 35.0-48.0 mmHg Arterial Blood Partial Pressure O2 78.1 L 83.0-108.0 mmHg Arterial Blood HCO3 20.8 L 21.0-28.0 mmol/L Arterial Blood Oxygen Saturation 92.8 L 94.0-98.0 % Arterial Blood Base Excess -6.6 L -2.0-3.0 mmol/L Arterial Blood Oxyhemoglobin 90.9 L 94.0-98.0 % Arterial Blood Carboxyhemoglobin 1.4 0.5-1.5 % Arterial Blood Methemoglobin 0.6 0.0-1.5 % Mikal Test Modified Blood Gas Total Hemoglobin 14.90 13.5-17.5 g/dL Blood Gas Set Respiration Rate 18.0 Blood Gas Modality Vent - ac FiO2 % 100.0 Blood Gas Tidal Volume 550.0 Blood Gas PEEP or CPAP 5.0 Lactic Acid Level 4.1 *H 0.4-2.0 mmol/L Test 08/28/24 20:45 Range/Units White Blood Count 11.9 H 4.4-10.8 10^3/uL Red Blood Count 4.31 L 4.5-5.90 10^6/uL Hemoglobin 12.6 L 13.5-17.5 g/dL Hematocrit 37.8 L 41.0-53.0 % Mean Corpuscular Volume 87.7 80.0-100.0 fL Mean Corpuscular Hemoglobin 29.3 28.0-32.0 pg Mean Corpuscular Hemoglobin Concent 33.4 32.0-36.0 g/dL Red Cell Distribution Width 14.6 H 11.8-14.3 % Platelet Count 136 L 140-450 10^3/uL Mean Platelet Volume 9.7 6.9-10.8 fL Neutrophils (%) (Auto) 37.0-80.0 % Lymphocytes (%) (Auto) 10.0-50.0 % Monocytes (%) (Auto) 0.0-12.0 % Basophils (%) (Auto) 0.0-2.0 % Neutrophils # (Auto) 1.6-8.6 10 ^3/uL Lymphocytes # (Auto) 0.4-5.4 10 ^3/uL Monocytes # (Auto) 0-1.3 10 ^3/uL Differential Total Cells Counted 100.0 100 Neutrophils % (Manual) 61 37.0-80.0 Band Neutrophils % (Manual) 29 Lymphocytes % (Manual) 4 L 10.0-50.0 Monocytes % (Manual) 6 0-12 Eosinophils % (Manual) 0 0-7 Basophils % (Manual) 0 0.0-2.0 Metamyelocytes % (manual) 0 Myelocytes % (Manual) 0 Promyelocytes % (Manual) 0 Blast Cells % (Manual) 0 Reactive Lymphocytes 0 Platelet Estimate Decreased Sodium Level 135 L 136-145 mmol/L Potassium Level 3.8 3.5-5.1 mmol/L Chloride Level 101 98-107 mmol/L Carbon Dioxide Level 23 20-31 mmol/L Anion Gap 11 5-15 Blood Urea Nitrogen 34 H 9-23 mg/dL Creatinine 2.62 H 0.700-1.30 mg/dL Glomerular Filtration Rate Calc 26 >90 mL/min BUN/Creatinine Ratio 13.0 10.0-20.0 Serum Glucose 89 74-106 mg/dL Lactic Acid Level 4.6 *H 0.4-2.0 mmol/L Calcium Level 8.8 8.7-10.4 mg/dL Total Bilirubin 1.5 H 0.2-1.0 mg/dL Aspartate Amino Transferase (AST) 45 H 13-40 U/L Alanine Aminotransferase (ALT) 29 7-40 U/L Alkaline Phosphatase 93 46-116 U/L Troponin I High Sensitivity 62 *H </=54 ng/L B-Type Natriuretic Peptide 820.23 0-100 pg/mL Total Protein 6.5 5.7-8.2 g/dL Albumin 3.9 3.2-4.8 g/dL Lipase 40 12-53 U/L Current Medications Medications (Trade) Dose Ordered Sig/Ace Route Start Time Stop Time Status Last Admin Cefepime HCl 50 ml @ 12.5 mls/hr ONCE ONCE IV 08/28/24 20:30 08/29/24 00:29 DC 08/28/24 22:46 Vancomycin HCl 200 ml @ 200 mls/hr ONCE ONCE IV 08/28/24 20:30 08/28/24 21:29 DC 08/28/24 21:10 Acetaminophen (Tylenol Tablet) 650 mg ONCE ONCE PO 08/28/24 20:30 08/28/24 20:31 DC 08/28/24 21:09 Sodium Chloride 1,000 ml @ 1,000 mls/hr Q1H ONCE IV 08/28/24 21:30 08/28/24 22:29 DC 08/28/24 20:50 Norepinephrine Bitartrate 250 ml @ 3.75 mls/hr Q24H IV 08/28/24 22:00 08/28/24 21:30 Dopamine HCl/ Dextrose 250 ml @ 28.125 mls/ hr Q8H54M IV 08/29/24 01:15 08/29/24 01:15 EXAM: XY CHEST PORTABLE TECHNIQUE: Single frontal chest radiograph CLINICAL HISTORY: dizziness COMPARISON: XY CHEST XRAY 1 VIEW on DOS: 04/22/24, XY CHEST XRAY 1 VIEW on DOS: 04/21/24, XY CHEST PORTABLE on DOS: 04/21/24 Findings/Impression: Frontal chest radiograph demonstrates no acute osseous or superficial soft tissue abnormalities. The trachea is midline. Cardiomegaly with pulmonary vascular congestion. Medial right lower lung field hazy opacity. No pneumothorax or pleural effusions. Time of 1ST Reevaluation: 20:50 Reevaluation 1ST: Unchanged Patient Education/Counseling: Diagnosis, Treatment Family Education/Counseling: No Family Present Departure 1 Departure Time of Disposition: 02:18 (Patient presenting with concern for sepsis. Patient was acutely deteriorating was intubated central line placed patient is started on pressors. We will not give patient fluids as patient appears clinically volume overloaded.) Impression: Primary Impression: Sepsis Qualified Codes: A41.9 - Sepsis, unspecified organism; R65.21 - Severe sepsis with septic shock; J96.01 - Acute respiratory failure with hypoxia Additional Impressions: Volume overload Qualified Codes: E87.70 - Fluid overload, unspecified Acute urinary retention Disposition: ADMITTED INPATIENT Admit to: ICU Condition: Critical Critical Care Note Critical Care Time?: Yes (35 min-critical care time only) Critical care comment: Hypotension, shortness of breath Authorized and Performed by: Deborah Jolley MD Total critical care time: Approximately 173 minutes Due to a high probability of clinically significant, life threatening deterioration, the patient required my highest level of preparedness to intervene emergently and I personally spent this critical care time directly and personally managing the patient. This critical care time included obtaining a history; examining the patient; pulse oximetry; ordering and review of studies; arranging urgent treatment with development of a management plan; evaluation of patient's response to treatment; frequent reassessment; and, discussions with other providers. This critical care time was performed to assess and manage the high probability of imminent, life-threatening deterioration that could result in multi-organ failure. It was exclusive of separately billable procedures and treating other patients and teaching time. Please see my other sections and the rest of the note for further information on patient assessment and treatment. Stability Stability form required: No Heart Score Heart Score: Heart Score Response (Comments) Value History Moderate Suspicious 1 EKG Repolarization Disturb 1 Age >65 2 Risk Factors >3 or Hx ASHD 2 Troponin 1-2 x's Normal limit 1 Total 7 I personally scribed for DEBORAH JOLLEY MD ([email or web address]) on 08/28/24 at 20:57. Elec tronically submitted by Lobo Montesinos ([facility]). I personally scribed for DEBORAH JOLLEY MD ([email or web address]) on 08/28/24 at 22:03. Electronically submitted by Lobo Montesinos ([facility]). I personally scribed for DEBORAH JOLLEY MD ([facility]) on 08/28/24 at 22:52. Electronically submitted by Lobo Montesinos ([facility]). I personally scribed for DEBORAH JOLLEY MD ([facility]) on 08/28/24 at 22:53. Electronically submitted by Lobo Montesinos ([facility]). DEBORAH JOLLEY MD Aug 28, 2024 20:57
[2024-08-28] MEDS: ACETAMINOPHEN 325 MG TAB PO ONE (21:09)
[2024-08-28] MEDS: VANCOMYCIN 1GM/250ML KIT 200 ML IV ONE (21:10)
[2024-08-28 21:30] LABS: Alanine Aminotransferase 29 U/L (7-40); Albumin 3.9 g/dL (3.2-4.8); Alkaline Phosphatase 93 U/L (46-116); Anion Gap 11 (5-15); Calcium 8.8 mg/dL (8.7-10.4); Carbon Dioxide 23 mmol/L (20-31); Chloride 101 mmol/L (98-107); Glucose 89 mg/dL (74-106); Lipase 40 U/L (12-53); Potassium 3.8 mmol/L (3.5-5.1); Total Protein 6.5 g/dL (5.7-8.2)
[2024-08-28] MEDS: NOREPINEPHRINE 8 MG/250ML KIT 250 ML IV ONE (21:30)
[2024-08-28] MEDS: NOREPINEPHRINE 8 MG/250ML KIT 250 ML IV SCH (21:30)
--- NOTE | 2024-08-28 21:30 | DVH ---
EXAM: XY CHEST PORTABLE TECHNIQUE: Single frontal chest radiograph CLINICAL HISTORY: dizziness COMPARISON: XY CHEST XRAY 1 VIEW on DOS: 04/22/24, XY CHEST XRAY 1 VIEW on DOS: 04/21/24, XY CHEST PO RTABLE on DOS: 04/21/24 Findings/Impression: Frontal chest radiograph demonstrates no acute osseous or superficial soft tissue abnormalities. The trachea is midline. Cardiomegaly with pulmonary vascular congestion. Medial right lower lung field hazy opacity. No pneumothorax or pleural effusions.
[2024-08-28 21:58] LABS: Hematocrit 37.8 % (41.0-53.0); Hemoglobin 12.6 g/dL (13.5-17.5); Mean Corpuscular Hemoglobin 29.3 pg (28.0-32.0); Mean Corpuscular Hgb Conc. 33.4 g/dL (32.0-36.0); Mean Corpuscular Volume 87.7 fL (80.0-100.0); Platelet Count (auto) 136 10^3/uL (140-450); Red Blood Cells 4.31 10^6/uL (4.5-5.90); Red Cell Distribution Width 14.6 % (11.8-14.3); White Blood Cell 11.9 10^3/uL (4.4-10.8)
[2024-08-28 22:01] LABS: Basophils % (manual) 0 (0.0-2.0); Blast Cells 0; Eosinophils % (manual) 0 (0-7); Metamyelocytes % 0; Myelocytes % 0; Promyelocytes % 0; Reactive Lymphocytes 0
[2024-08-28] MEDS: VASOPRESSIN 20 UNIT/ML ONE (22:04)
[2024-08-28 22:05] LABS: Aspartate Aminotransferase 45 U/L (13-40); Blood Urea Nitrogen 34 mg/dL (9-23); Sodium 135 mmol/L (136-145)
[2024-08-28 22:06] LABS: Bilirubin, Total 1.5 mg/dL (0.2-1.0)
[2024-08-28 22:11] LABS: Lactic Acid w/Reflex 4.6 mmol/L (0.4-2.0)
[2024-08-28] MEDS: ETOMIDATE (2MG/ML) 20ML VIAL IV ONE ×2 (22:12→22:27)
[2024-08-28] MEDS: ROCURONIUM 10MG/ML 10ML VIAL IV ONE ×2 (22:12→22:28)
[2024-08-28 22:30] LABS: Band Neutrophils % (manual) 29; Lymphocytes % (manual) 4 (10.0-50.0); Monocytes % (manual) 6 (0-12); Platelet Estimate Decreased
[2024-08-28] MEDS ORDERED: PHENYLEPHRINE IV 250 ML IV SCH (22:30)
[2024-08-28] MEDS: MIDAZOLAM DRIP 50 mg/50mL 50 ML IV SCH (22:45)
[2024-08-28] MEDS: CEFEPIME 2GM/50ML NS 50 ML IV ONE (22:46)
[2024-08-28] MEDS: PHENYLEPHRINE IV 250 ML IV SCH (22:55)
[2024-08-28] MEDS: fentaNYL Drip 2500mCg/250mlNS 250 ML IV SCH (23:00)
[2024-08-28 23:29] LABS: Base Excess -6.6 mmol/L (-2.0-3.0)
[2024-08-29] VITALS (75 sets, daily range): BP systolic 66–153; BP diastolic 15–116; PULSE 72–105; RESP 14–27; TEMP 99.7–101.3; O2SAT 79–100
[2024-08-29] MEDS ORDERED: LIDOCAINE 2% TOPICAL JELLY 5 ML URJT TOP ONE (00:15)
[2024-08-29] MEDS: LIDOCAINE VISCOUS 2% 15ML UD MT ONE (00:30)
--- NOTE | 2024-08-29 00:39 | DVH ---
CHEST RADIOGRAPH Indication: POST INTUBATION Technique: Single frontal view of the chest was obtained COMPARISON: XY CHEST PORTABLE on DOS: 08/28/24, XY CHEST XRAY 1 VIEW on DOS: 04/22/24, XY CHEST XRAY 1 VIEW on DOS: 04/21/24, XY CHEST PORTABLE on DOS: 04/21/24 FINDINGS: Lines and Tubes: Status post intubation, endotracheal tube tip identified approximately 2.6 cm above the level of the sherri. Lungs: Stable appearing diffuse increased prominence of the pulmonary vasculature. No evidence of foc al consolidation. Pleura: No definite effusion. No pneumothorax. Cardiomediastinal contours: Stable cardiomegaly. Bones: Unremarkable IMPRESSION: 1. Endotracheal tube in satisfactory position status post intubation. 2. Stable diffuse increased prominence of the pulmonary vasculature and cardiomegaly.
[2024-08-29] MEDS: LIDOCAINE VISCOUS 2% 15ML UD ONE (00:42)
[2024-08-29] MEDS ORDERED: DOBUTamine 1000MCG/ML 250 ML IV SCH (01:00)
[2024-08-29] MEDS: DOPamine 1600MCG/ML D5W 250 ML IV SCH (01:15)
[2024-08-29] MEDS: DOPamine 1600MCG/ML D5W 250 ML IV ONE (01:16)
[2024-08-29] MEDS ORDERED: MORPHINE SULFATE INJ 2 MG/ml SYRG IV PRN (03:45)
[2024-08-29] MEDS ORDERED: VANCOMYCIN PER PHARMACY 0 MG IV SCH (03:45)
[2024-08-29] MEDS ORDERED: NITROGLYCERIN 0.4 MG SL TAB SL PRN (03:45)
[2024-08-29] MEDS ORDERED: ONDANSETRON HCL 4 MG/2 ML VIAL IV PRN (03:45)
--- NOTE | 2024-08-29 04:11 | DVHHP2 ---
ALYSSA TERRY GARMENT INSPECTOR 08/29/24 0411: History of Present Illness Reason for Visit: Dizziness History of Present Illness Information has HPI is limited due to patient's critical condition. 61-year-old male with past medical history of CHF, DM, hypertension, hyperlipidemia presents with complaints of dizziness. On arrival to the emergency department patient was found to be hypotensive and hypoxic. Shortly after arrival patient was intubated and place on mechanical ventilation, central line was placed and started on vasopressors. Patient admitted for further evaluation treatment at this time. Cardiovascular: CAD, CHF, HTN, hyperipidemia Endocrine: Diabetes Past Social History Unable to obtain due to clinical condition Review of Systems Review of Systems Unable to complete due to current condition Allergies: Coded Allergies: NO KNOWN ALLERGIES (Unverified , 04/21/24) Medications Current Medications Medications Dose Ordered Sig/Ace Route Start Time Stop Time Status Last Admin Dose Admin Norepinephrine Bitartrate 250 ml @ 3.75 mls/hr Q24H IV 08/28/24 22:00 08/28/24 21:30 18.75 MLS/HR Vasopressin 20 units/Sodium Chloride 100 ml @ 9 mls/hr Q11H7M IV 08/28/24 22:00 Midazolam HCl 50 ml @ 1 mls/hr Q24H IV 08/28/24 22:30 Fentanyl Citrate 250 ml @ 2.5 mls/hr Q24H IV 08/28/24 22:30 Phenylephrine HCl 250 ml @ 30 mls/hr Q8H20M IV 08/28/24 22:45 Dobutamine HCl/ Dextrose 250 ml @ 45 mls/hr Q5H34M IV 08/29/24 01:00 Cancel Dopamine HCl/ Dextrose 250 ml @ 28.125 mls/ hr Q8H54M IV 08/29/24 01:15 08/29/24 01:15 28.125 MLS/HR Exam Vital Signs Vital Signs Date Time Temp Pulse Resp B/P (MAP) Pulse Ox O2 Delivery O2 Flow Rate FiO2 08/29/24 02:38 72 21 94/29 (50) 90 100 08/28/24 21:09 98.0 General Appearance: Other (Ill-appearing, obese, sedated-intubated on mechanical ventilator) Respiratory: Other (Diminished air exchange. Tolerating mechanical ventilation) Cardiovascular: Regular rate, Normal S1, Normal S2 Abdominal: Soft, No tenderness Extremities: No clubbing, Other (BLE pulses 1+. Extremities cool to palpation. ) Skin: No rashes, No breakdown Neuro: Other (Patient is sedated, intubated on mechanical ventilator) Psych/Mental Status: Other (Unable to assess) Labs/Xrays Labs Test 08/28/24 23:31 08/28/24 23:20 08/28/24 22:50 08/28/24 20:45 Range/Units Troponin I High Sensitivity 67 *H </=54 ng/L Blood Gas Specimen Type Arterial Blood Gas Sample Site Right radial Blood Gas Patient Temperature 37.0 Arterial Blood Date Drawn [id number] Arterial Blood pH 7.252 L 7.350-7.450 Arterial Blood Partial Pressure CO2 48.2 H 35.0-48.0 mmHg Arterial Blood Partial Pressure O2 78.1 L 83.0-108.0 mmHg Arterial Blood HCO3 20.8 L 21.0-28.0 mmol/L Arterial Blood Oxygen Saturation 92.8 L 94.0-98.0 % Arterial Blood Base Excess -6.6 L -2.0-3.0 mmol/L Arterial Blood Oxyhemoglobin 90.9 L 94.0-98.0 % Arterial Blood Carboxyhemoglobin 1.4 0.5-1.5 % Arterial Blood Methemoglobin 0.6 0.0-1.5 % Mikal Test Modified Blood Gas Total Hemoglobin 14.90 13.5-17.5 g/dL Blood Gas Set Respiration Rate 18.0 Blood Gas Modality Vent - ac FiO2 % 100.0 Blood Gas Tidal Volume 550.0 Blood Gas PEEP or CPAP 5.0 Lactic Acid Level 4.1 *H 0.4-2.0 mmol/L White Blood Count 11.9 H 4.4-10.8 10^3/uL Red Blood Count 4.31 L 4.5-5.90 10^6/uL Hemoglobin 12.6 L 13.5-17.5 g/dL Hematocrit 37.8 L 41.0-53.0 % Mean Corpuscular Volume 87.7 80.0-100.0 fL Mean Corpuscular Hemoglobin 29.3 28.0-32.0 pg Mean Corpuscular Hemoglobin Concent 33.4 32.0-36.0 g/dL Red Cell Distribution Width 14.6 H 11.8-14.3 % Platelet Count 136 L 140-450 10^3/uL Mean Platelet Volume 9.7 6.9-10.8 fL Neutrophils (%) (Auto) 37.0-80.0 % Lymphocytes (%) (Auto) 10.0-50.0 % Monocytes (%) (Auto) 0.0-12.0 % Basophils (%) (Auto) 0.0-2.0 % Neutrophils # (Auto) 1.6-8.6 10 ^3/uL Lymphocytes # (Auto) 0.4-5.4 10 ^3/uL Monocytes # (Auto) 0-1.3 10 ^3/uL Differential Total Cells Counted 100.0 100 Neutrophils % (Manual) 61 37.0-80.0 Band Neutrophils % (Manual) 29 Lymphocytes % (Manual) 4 L 10.0-50.0 Monocytes % (Manual) 6 0-12 Eosinophils % (Manual) 0 0-7 Basophils % (Manual) 0 0.0-2.0 Metamyelocytes % (manual) 0 Myelocytes % (Manual) 0 Promyelocytes % (Manual) 0 Blast Cells % (Manual) 0 Reactive Lymphocytes 0 Platelet Estimate Decreased Sodium Level 135 L 136-145 mmol/L Potassium Level 3.8 3.5-5.1 mmol/L Chloride Level 101 98-107 mmol/L Carbon Dioxide Level 23 20-31 mmol/L Anion Gap 11 5-15 Blood Urea Nitrogen 34 H 9-23 mg/dL Creatinine 2.62 H 0.700-1.30 mg/dL Glomerular Filtration Rate Calc 26 >90 mL/min BUN/Creatinine Ratio 13.0 10.0-20.0 Serum Glucose 89 74-106 mg/dL Calcium Level 8.8 8.7-10.4 mg/dL Total Bilirubin 1.5 H 0.2-1.0 mg/dL Aspartate Amino Transferase (AST) 45 H 13-40 U/L Alanine Aminotransferase (ALT) 29 7-40 U/L Alkaline Phosphatase 93 46-116 U/L B-Type Natriuretic Peptide 820.23 0-100 pg/mL Total Protein 6.5 5.7-8.2 g/dL Albumin 3.9 3.2-4.8 g/dL Lipase 40 12-53 U/L Assessment/Plan Assessment/Plan Sepsis (lactic acidosis, hypotension, febrile) Acute respiratory failure with hypoxia S/P intubation on mechanical ventilator Acute on chronic CHF exacerbation Elevated troponin Acute urinary retention. (ER unable to advance indwelling FC) OG unknown CKD DM Plan Admit ICU Pulmonology consult. Bronchodilators. As needed supplemental O2 to maintain oxygen saturation greater than 93%. RT monitoring. Ventilator management per pulmonology. Cardiology consult. Echocardiogram. As needed vasopressors to maintain MAP greater than 65. We will diurese with Lasix as needed. Infectious disease consult. Blood cultures pending. UA/urine cultures pending. Broad-spectrum IV ABX Urology consult. Blood glucose checks every 6 hours to prevent hypoglycemia. Nephrology consult. Monitor BMP. Trend BUN/creatinine. Pressure ulcer precautions. GI PPX Protonix/DVT PPX Heparin SQ Condition critical/prognosis poor Patient condition and plan of care was discussed in detail with patient's Dawna via telephone. Verbalized understanding the plan of care. Plan discussed with: Spouse My Orders Orders - ALYSSA TERRY NP Procedure Category Date Status Time Admit ADMIT 08/29/24 Transmitted 03:44 Code Status CODE 08/29/24 Transmitted 03:44 Vital Signs [facility] 08/29/24 Transmitted 03:44 Review Orders With [facility] 08/29/24 Transmitted Adm. 03:44 Maintain Bed Rest [facility] 08/29/24 Transmitted 03:44 Npo (Nothing By DIET 08/29/24 Transmitted Mouth) Diet Breakfast Oxygen By Face Mask RT 08/29/24 Transmitted 03:44 Acetaminophen Tablet [facility] 08/29/24 Transmitted (Tylenol Tablet) 03:45 Notify Of Changes [facility] 08/29/24 Transmitted From Base 03:44 Advance Directive [facility] 08/29/24 Transmitted 03:44 Echo 2d Mode Cardiac US 08/29/24 Verified DOP 03:44 Basic Metabolic Panel LAB 08/29/24 Verified 05:00 Basic Metabolic Panel LAB 09/03/24 Verified 05:00 Basic Metabolic Panel LAB 09/04/24 Verified 05:00 Basic Metabolic Panel LAB 09/05/24 Verified 05:00 Complete Blood Count LAB 08/29/24 Verified 05:00 Complete Blood Count LAB 08/30/24 Verified 05:00 Complete Blood Count LAB 08/31/24 Verified 05:00 Complete Blood Count LAB 09/01/24 Verified 05:00 Complete Blood Count LAB 09/02/24 Verified 05:00 Complete Blood Count LAB 09/03/24 Verified 05:00 Complete Blood Count LAB 09/04/24 Verified 05:00 Complete Blood Count LAB 09/05/24 Verified 05:00 Patient Condition ORDERS 08/29/24 Verified 03:44 Allergies [facility] 08/29/24 Verified 03:44 Ondansetron Hcl PHA 08/29/24 Verified (Zofran) 03:45 Lovenox 40mg [facility]A 08/29/24 Verified 10:00 Sequential [facility] 08/29/24 Verified Compression Device Nitroglycerin [facility] 08/29/24 Verified Sublingual (Ntrostat 03:45 Morphine Sulfate [facility] 08/29/24 Verified Injection 03:45 Stat Ekg For Chest [facility] 08/29/24 Verified Pain 03:44 Notify Md Of Changes [facility] 08/29/24 Verified From Base 03:44 Tobacco Cutter For [facility] 08/29/24 Verified 24 Hours 03:44 Emergency Dysrhythmia [facility] 08/29/24 Verified Protocol 03:44 Rhythm Strips Once [facility] 08/29/24 Verified Every Shift 03:44 Oxygen By Nasal RT 08/29/24 Verified Cannula 03:44 *Consult CONS 08/29/24 Verified / 03:44 * Cardiology Consult CONS 08/29/24 Verified 03:44 * Urology Consult CONS 08/29/24 Transmitted 03:44 Vancomycin Per PHA 08/29/24 Verified Pharmacy 03:45 Cefepime 1 Gm [facility] 08/29/24 Verified 06:00 *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 Patient had a fall 5 days ago, b.i.d. hurt his left side of his chest with noted bruising patient has started having dizziness headache and diaphoresis on scene with dysuria urinary frequency found to be hypotensive and hypoxic in the ER status post intubation. 1. Acute hypoxic respiratory failure status post intubation currently on mechanical ventilation with FiO2 of 80% 2. Hypovolemic/septic shock secondary to suspected pneumonia, Gram-positive bacteremia 3. Gram-positive bacteremia 4. Leukocytosis likely reactive secondary to underlying sepsis 5. Lactic acidosis 6. Acute kidney injury suspect he is going to need to be supplemented nephropathy/lisinopril induced and Lasix induced 7. Acute metabolic/septic encephalopathy 8. Urinary retention status post suprapubic catheter placement by IR 9. Elevated troponin suspect demand ischemia/decreased renal clearance, does not seem to be acute coronary syndrome 10. Morbid obesity class III -continue broad-spectrum IV antibiotics, IV vasopressors, infectious disease consultation, pulmonary consultation, keep them mechanical ventilation -follow up CT chest abdomen months patient FiO2 is at baseline -plan of care discussed with patient's and other family members including daughters at bedside in the presence of nurse has a and 1 mod nursing program director -all the questions were answered, patient remains critical prognosis remain guarded. ALYSSA TERRY NP Aug 29, 2024 04:11 NUHA MORALES MD Aug 29, 2024 16:33
[2024-08-29] MEDS: PHENYLEPHRINE HCL 10 MG/ML VL ONE (05:07)
[2024-08-29 05:21] LABS: Hematocrit 42.2 % (41.0-53.0); Mean Corpuscular Hemoglobin 29.6 pg (28.0-32.0); Mean Corpuscular Hgb Conc. 33.1 g/dL (32.0-36.0); Mean Corpuscular Volume 89.3 fL (80.0-100.0); Platelet Count (auto) 152 10^3/uL (140-450); Red Blood Cells 4.72 10^6/uL (4.5-5.90); White Blood Cell 24.3 10^3/uL (4.4-10.8)
--- NOTE | 2024-08-29 05:41 | DVH ---
CHEST RADIOGRAPH Indication: og Technique: Single frontal view of the chest was obtained Comparison: XY CHEST XRAY 1 VIEW on DOS: 08/29/24, XY CHEST PORTABLE on DOS: 08/28/24, XY CHEST XRAY 1 VIEW on DOS: 04/22/24, XY CHEST XRAY 1 VIEW on DOS: 04/21/24, XY CHEST PORTABLE on DOS: 04/21/24, XY CHEST XRAY 1 VIEW on DOS: 08/29/24 FINDINGS: Lines and Tubes: Unchanged endotracheal tube. Nasogastric tube overlying the stomach. Lungs: Stable appearing diffuse increased prominence of the pulmonary vasculature. No evidence of foc al consolidation. Pleura: No definite effusion. No pneumothorax. Cardiomediastinal contours: Stable cardiomegaly. Bones: Unremarkable IMPRESSION: 1. Lines and tubes in appropriate positioning. 2. Stable diffuse increased prominence of the pulmonary vasculature and cardiomegaly.
[2024-08-29 05:43] LABS: Chloride 100 mmol/L (98-107); Potassium 3.9 mmol/L (3.5-5.1); Sodium 137 mmol/L (136-145)
[2024-08-29 05:44] LABS: Anion Gap 12 (5-15); Carbon Dioxide 25 mmol/L (20-31)
[2024-08-29 05:47] LABS: Basophils % (manual) 0 (0.0-2.0); Blast Cells 0; Eosinophils % (manual) 0 (0-7); Metamyelocytes % 0; Myelocytes % 0; Promyelocytes % 0; Reactive Lymphocytes 0
[2024-08-29 05:49] LABS: BUN/Creatinine Ratio 11.1 (10.0-20.0)
--- NOTE | 2024-08-29 05:50 | ECG ---
[facility] Test Date: 2024-08-28 Test Time: 20:27:58 Pat Name: VENKATA BEATTYVILLE Department: ED Room: 0263 Gender: M Web Application Dev Specialist: RIGOBERTO : [id number] Requested By: DEBORAH MARIN Order Number: [id number] Reading MD: Osmin Baker Measurements Intervals [place] Rate: 76 P: 6 WA: 194 QRS: 28 QRSD: 92 T: 76 QT: 423 QTc: 476 Interpretive Statements Sinus rhythm Ventricular premature complex Low voltage, precordial leads Electronically Signed On 08-29-2024 11:57:14 PDT by Osmin Baker Please click the below link to view image of tracing.
[2024-08-29] MEDS: PHENYLEPHRINE INJ 80 MG in SODIUM CHL 0.9% 242 ML IV SCH (05:51)
[2024-08-29] MEDS: ACETAMINOPHEN IV 1000 MG/100ML (10MG/ML) IV PRN (05:54)
[2024-08-29] MEDS: CEFEPIME 1GM/ 50ML 50 ML IV SCH (06:00)
[2024-08-29 06:11] LABS: Blood Urea Nitrogen 40 mg/dL (9-23); Calcium 8.7 mg/dL (8.7-10.4); Glucose 119 mg/dL (74-106)
[2024-08-29 08:18] LABS: Base Excess -9.8 mmol/L (-2.0-3.0)
--- NOTE | 2024-08-29 08:20 | DVHINCON2 ---
Date of service: Aug 29, 2024 Referring Physician ER Reason for Consultation Unable to place Craig catheter, multiple attempts made. Probable False passage. History of Present Illness Unable to place Craig catheter. Bladder scan shows 1000 ml in bladder. Probable false passage made. Urgent call made to Dr. Simmons of for US guided SPT placement for temporary diversion. Will proceed with cystoscopy after stabilization. 69-year-old male came to ER via EMS for dizziness. Per EMS, patient was picked up at home, has history of hypertension, dyslipidemia and CHF. Had the ground level fall 5 days ago, and landed badly on the left side of his chest. Noted bru ising and tenderness on that area. Few hours ago, patient started complaining of dizziness and headaches, and was diaphoretic on scene. Patient also complaining of dysuria and urinary frequency. Upon arrival of paramedics, patient was hypotensive at 83/41 mmHg, saturating at 91% on room air and slightly febrile at 100.3 F Chief Complaint: Dizziness Reviewed Notes: Nurses Notes Allergies: Coded Allergies: NO KNOWN ALLERGIES (Unverified , 04/21/24) Home Meds Active Scripts Metronidazole (Flagyl) 500 Mg Tab, 1 TAB PO BID, #10 TAB Prov:CHINO RIVERA MD 04/23/24 Famotidine (Pepcid AC) 20 Mg Tab, 20 MG PO DAILY, #20 TAB Prov:CHINO RIVERA MD 04/23/24 Ibuprofen Micronized (Ibuprofen) 800 Mg Tab, 1 TAB PO TID, #14 TAB Prov:CHINO RIVERA MD 04/23/24 Reported Medications Ipratropium-Albuterol (Ipratropium [place]/Albut) 1 Rukhsana Rukhsana, 1 VIAL IN TID PRN for 40 Days, #180 04/23/24 Semaglutide (Ozempic) 8 Mg/3 Ml Inj, 2 MG SC QWEEKLY for 28 Days, #3 04/22/24 Apixaban Base (ELIQUIS) 5 Mg Tab, 1 TAB PO BID 04/22/24 Lisinopril (Lisinopril) 20 Mg Tab, 1 TAB PO DAILY 04/22/24 Metoprolol Succinate (Metoprolol Succinate Er) 50 Mg Tab, 1 TAB PO DAILY 04/22/24 Atorvastatin Calcium (ATORVASTATIN CALCIUM) 20 Mg Tab, 1 TAB PO DAILY 04/22/24 Furosemide (Furosemide) 40 Mg Tab, 1 TAB PO BID 04/22/24 Information Source: Patient, Emergency Med Personnel Mode of Arrival: EMS Severity: Moderate Timing: Hours Duration: Since onset Prehospital treatment: 12 Lead EKG, Oxygen Lymphatic: No Adenopathy Past Medical History CHF, High Lipids, HTN Past Medical History (Other): Small bowel obstruction Past Surgical History NA Family History: Diabetes mellitus G8 MOTHER, Allergies: Coded Allergies: NO KNOWN ALLERGIES (Unverified , 04/21/24) Home Meds Active Scripts Metronidazole (Flagyl) 500 Mg Tab, 1 TAB PO BID, #10 TAB Prov:CHINO RIVERA MD 04/23/24 Famotidine (Pepcid AC) 20 Mg Tab, 20 MG PO DAILY, #20 TAB Prov:CHINO RIVERA MD 04/23/24 Ibuprofen Micronized (Ibuprofen) 800 Mg Tab, 1 TAB PO TID, #14 TAB Prov:CHINO RIEVRA MD 04/23/24 Reported Medications Ipratropium-Albuterol (Ipratropium [place]/Albut) 1 Rukhsana Ruhksana, 1 VIAL IN TID PRN for 40 Days, #180 04/23/24 Semaglutide (Ozempic) 8 Mg/3 Ml Inj, 2 MG SC QWEEKLY for 28 Days, #3 04/22/24 Apixaban Base (ELIQUIS) 5 Mg Tab, 1 TAB PO BID 04/22/24 Lisinopril (Lisinopril) 20 Mg Tab, 1 TAB PO DAILY 04/22/24 Metoprolol Succinate (Metoprolol Succinate Er) 50 Mg Tab, 1 TAB PO DAILY 04/22/24 Atorvastatin Calcium (ATORVASTATIN CALCIUM) 20 Mg Tab, 1 TAB PO DAILY 04/22/24 Furosemide (Furosemide) 40 Mg Tab, 1 TAB PO BID 04/22/24 Current Medications Current Medications Medications (Trade) Dose Ordered Sig/Ace Route PRN Reason Start Time Stop Time Status Last Admin Norepinephrine Bitartrate 250 ml @ 3.75 mls/hr Q24H IV 08/28/24 22:00 08/29/24 03:30 Vasopressin 20 units/Sodium Chloride 100 ml @ 9 mls/hr Q11H7M IV 08/28/24 22:00 08/29/24 00:00 Midazolam HCl 50 ml @ 1 mls/hr Q24H IV 08/28/24 22:30 08/28/24 22:45 Fentanyl Citrate 250 ml @ 2.5 mls/hr Q24H IV 08/28/24 22:30 08/28/24 23:00 Phenylephrine HCl 250 ml @ 30 mls/hr Q8H20M IV 08/28/24 22:30 08/28/24 22:51 DC Phenylephrine HCl 250 ml @ 30 mls/hr Q8H20M IV 08/28/24 22:45 08/29/24 05:29 DC 08/28/24 22:55 Dobutamine HCl/ Dextrose 250 ml @ 45 mls/hr Q5H34M IV 08/29/24 01:00 Cancel Dopamine HCl/ Dextrose 250 ml @ 28.125 mls/ hr Q8H54M IV 08/29/24 01:15 08/29/24 01:15 Acetaminophen (Tylenol Tablet) 650 mg Q6HP PRN PO PAIN SCALE 1-3 OR TEMP>100.4 08/29/24 03:45 Ondansetron HCl (Zofran) 4 mg Q4HP PRN IV NAUSEA / VOMITING 08/29/24 03:45 Enoxaparin Sodium (Lovenox) 40 mg DAILY SC 08/29/24 10:00 Nitroglycerin (Ntrostat Sublingual) 0.4 mg Q5MINP PRN SL FOR CHEST PAIN 08/29/24 03:45 Morphine Sulfate 2 mg Q30M PRN IV FOR CHEST PAIN 08/29/24 03:45 Vancomycin HCl 0 ml @ 0 mls/hr UD IV 08/29/24 03:45 UNV Cefepime HCl 50 ml @ 12.5 mls/hr TID IV 08/29/24 06:00 08/29/24 06:00 Phenylephrine HCl 80 mg/Sodium Chloride 250 ml @ 7.5 mls/hr Q24H IV 08/29/24 05:30 08/29/24 05:51 Acetaminophen (Ofirmev) 1,000 mg [id number] PRN IV PAIN SCALE 1-3 OR TEMP>100.4 08/29/24 06:00 08/29/24 06:00 DC 08/29/24 05:54 Norepinephrine Bitartrate 32 mg/ Sodium Chloride 250 ml @ 0.938 mls/ hr Q24H IV 08/29/24 08:15 UNV Review of Systems Constitutional: reports: diaphoresis, fatigue; denies: chills, fever, malaise, sweats, weakness, others EENTM: denies: blurred vision, double vision, ear bleeding, ear discharge, ear drainage, ear pain, ear ringing, eye pain, eye redness, hearing loss, mouth pain, mouth swelling, nasal discharge, nose bleeding, nose congestion, nose pain, photophobia, tearing, throat pain, throat swelling, voice changes, others Respiratory: reports: shortness of breath; denies: cough, hemoptysis, orthopnea, SOB at rest, SOB with excertion, stridor, wheezing, others Cardiovascular: reports: dizzy spells; denies: chest pain, diaphoresis, Dyspnea on exertion, edema, irregular heart beat, left arm pain, lightheadedness, palpitations, PND, syncope, others Gastrointestinal: denies: abdomen distended, abdominal pain, blood streaked bowels, constipated, diarrhea, dysphagia, difficulty swallowing, hematemesis, melena, nausea, poor appetite, poor fluid intake, rectal bleeding, rectal pain, vomiting, others Genitourinary: reports: dysuria, frequency; denies: burning, flank pain, hematuria, incontinence, penile discharge, penile sore, pain, testicle pain, testicle swelling, urgency, others Neurological: reports: dizziness, headache; denies: fainting, left sided numbness, left sided weakness, numbness, paresthesia, pre-existing deficit, right sided numbness, right sided weakness, seizure, speech problems, tingling, tremors, weakness, others Musculoskeletal: denies: back pain, gout, joint pain, joint swelling, muscle pain, muscle stiffness, neck pain, others Integumetry: denies: bruises, change in color, change in hair/nails, dryness, laceration, lesions, lumps, rash, wounds, others Hematologic/Lymphatic: denies: anemia, blood clots, easy bleeding, easy bruising, swollen glands, others Endocrine: denies: excessive hunger, excessive sweating, excessive thirst, excessive urination, flushing, intolerance to cold, intolerance to heat, unexplained weight gain, unexplained weight loss, others Psychiatric: denies: anxiety, bipolar disorder, depression, hopeless, panic disorder, schizophrenia, sleepless, suicidal, others Vital Signs Vital Signs Date Time Temp Pulse Resp B/P (MAP) Pulse Ox O2 Delivery O2 Flow Rate FiO2 08/29/24 07:00 97/59 08/29/24 04:00 83 08/29/24 02:38 21 90 100 08/28/24 21:09 98.0 08/28/24 20:45 Nasal Cannula* 6 Physical Exam General Appearance: Moderate Distress HEENT: Normal ENT Inspection, Pharynx Normal, TMs Normal Neck: Full Range of Motion, Non-Tender, Normal, Normal Inspection Respiratory: Chest Non-Tender, Lungs Clear, No Accessory Muscle Use, No Respiratory Distress, Normal Breath Sounds Cardiovascular: No Edema, No JVD, No Murmur, No Gallop, Normal Peripheral Pulses, Regular Rate/Rhythm Breast Exam: Deferred Gastrointestinal: No Organomegaly, Non Tender, No Pulsatile Mass, Normal Bowel Sounds, Soft Genitalia: Deferred Pelvic: Deferred Rectal: Deferred Extremities: No calf tenderness, Normal capillary refill, Normal inspection, Normal range of motion, Non-tender, No pedal edema Musculoskeletal : Apperance: Normal Neurologic: Alert, 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 II-XII nml as Tested, No Motor Deficits, Normal Affect, Normal Mood, No Sensory Deficits Cerebellar Function: Normal Reflexes: Normal Skin: Dry, Normal Color, Warm Labs/Diagnostic Data Labs Test 08/29/24 04:56 08/28/24 23:31 08/28/24 23:20 08/28/24 22:50 Range/Units White Blood Count 24.3 #H 4.4-10.8 10^3/uL Red Blood Count 4.72 4.5-5.90 10^6/uL Hemoglobin 14.0 13.5-17.5 g/dL Hematocrit 42.2 # 41.0-53.0 % Mean Corpuscular Volume 89.3 80.0-100.0 fL Mean Corpuscular Hemoglobin 29.6 28.0-32.0 pg Mean Corpuscular Hemoglobin Concent 33.1 32.0-36.0 g/dL Red Cell Distribution Width 15.0 H 11.8-14.3 % Platelet Count 152 140-450 10^3/uL Mean Platelet Volume 8.9 6.9-10.8 fL Neutrophils (%) (Auto) 37.0-80.0 % Lymphocytes (%) (Auto) 10.0-50.0 % Monocytes (%) (Auto) 0.0-12.0 % Basophils (%) (Auto) 0.0-2.0 % Neutrophils # (Auto) 1.6-8.6 10 ^3/uL Lymphocytes # (Auto) 0.4-5.4 10 ^3/uL Monocytes # (Auto) 0-1.3 10 ^3/uL Sodium Level 137 136-145 mmol/L Potassium Level 3.9 3.5-5.1 mmol/L Chloride Level 100 98-107 mmol/L Carbon Dioxide Level 25 20-31 mmol/L Anion Gap 12 5-15 Blood Urea Nitrogen 40 H 9-23 mg/dL Creatinine 3.59 H 0.700-1.30 mg/dL Glomerular Filtration Rate Calc 18 >90 mL/min BUN/Creatinine Ratio 11.1 10.0-20.0 Serum Glucose 119 H 74-106 mg/dL Calcium Level 8.7 8.7-10.4 mg/dL Troponin I High Sensitivity 67 *H </=54 ng/L Blood Gas Specimen Type Arterial Blood Gas Sample Site Right radial Blood Gas Patient Temperature 37.0 Arterial Blood Date Drawn [id number] Arterial Blood pH 7.252 L 7.350-7.450 Arterial Blood Partial Pressure CO2 48.2 H 35.0-48.0 mmHg Arterial Blood Partial Pressure O2 78.1 L 83.0-108.0 mmHg Arterial Blood HCO3 20.8 L 21.0-28.0 mmol/L Arterial Blood Oxygen Saturation 92.8 L 94.0-98.0 % Arterial Blood Base Excess -6.6 L -2.0-3.0 mmol/L Arterial Blood Oxyhemoglobin 90.9 L 94.0-98.0 % Arterial Blood Carboxyhemoglobin 1.4 0.5-1.5 % Arterial Blood Methemoglobin 0.6 0.0-1.5 % Mikal Test Modified Blood Gas Total Hemoglobin 14.90 13.5-17.5 g/dL Blood Gas Set Respiration Rate 18.0 Blood Gas Modality Vent - ac FiO2 % 100.0 Blood Gas Tidal Volume 550.0 Blood Gas PEEP or CPAP 5.0 Lactic Acid Level 4.1 *H 0.4-2.0 mmol/L Test 3/27/25 20:45 Range/Units Total Bilirubin 1.5 H 0.2-1.0 mg/dL Aspartate Amino Transferase (AST) 45 H 13-40 U/L Alanine Aminotransferase (ALT) 29 7-40 U/L Alkaline Phosphatase 93 46-116 U/L B-Type Natriuretic Peptide 820.23 0-100 pg/mL Total Protein 6.5 5.7-8.2 g/dL Albumin 3.9 3.2-4.8 g/dL Lipase 40 12-53 U/L Assessment Urinary retention False passage likely BPH Elevated WBC Unstable for anesthesia for cystoscopy Plan/Recommendation Urgent IR Consult for US guided SPT placement Subsequent evaluation with CT Scan AP NC and PSA Cystoscopy TBA Plan discussed with: JACQUES Carter MD Aug 29, 2024 08:20
[2024-08-29 08:33] LABS: Band Neutrophils % (manual) 30; Lymphocytes % (manual) 5 (10.0-50.0); Monocytes % (manual) 5 (0-12)
[2024-08-29 08:34] LABS: Platelet Estimate Adequate
[2024-08-29 08:43] LABS: INR 1.15 (0.9-1.15); Partial Thromboplastin Time 31.2 SEC (24.5-34.5)
[2024-08-29] MEDS: NOREPINEPHRINE BITARTRATE 32 MG in SODIUM CHL 0.9% 218 ML IV SCH (09:00)
[2024-08-29] MEDS: ENOXAPARIN SOD 40 MG/0.4 ML SYRINGE SC SCH (10:00)
--- NOTE | 2024-08-29 10:58 | DVH ---
PROCEDURE: ULTRASOUND GUIDED TUBE PLACEMENT HISTORY: SUPRAPUBIC CATH DOCUMENTATION: Informed consent was obtained and a procedural time out was performed. TECHNIQUE: The skin over the bladder was sterilely prepped, draped, and infiltrated with 1% lidocain e. Ultrasound was used to locate the fluid collection with images archived in the PACS. Using real-ti me ultrasound guidance, the collection was accessed with a 19-gauge Yueh needle and a wire was coiled in the collection. A 8.5 Malay APD was then placed and the coil formed. Tube placement was confirme d with ultrasound imaging of the loop of the APD within the collection. The catheter was secured and connected to bulb suction. Sterile dressings were applied. FINDINGS: Distended bladder. Final demonstrates drainage catheter within bladder IMPRESSION: SUCCESSFUL ULTRASOUND GUIDED suprapubic placement.
[2024-08-29] MEDS: VANCOMYCIN 1.25GM/250ML 250 ML IV ONE (12:19)
--- NOTE | 2024-08-29 12:42 | DVHINCON2 ---
Date of service: Aug 29, [address] Acuña Reason for Consultation Septic Shock History of Present Illness Patient is a 61-year-old male presents to the hospital with dizziness. Information in HPI is limited due to patient's current condition. Per EMS, patient was picked up at home, Had the ground level fall 5 days ago, and landed badly on the left side of his chest. Noted bruising and tenderness on that area. Few hours ago, patient started complaining of dizziness and headaches, and was diaphoretic on scene. Upon arrival of paramedics, patient was hypotensive at 83/41 mmHg, saturating at 91% on room air and slightly febrile at 100.3 F. His ER course was notable for hypotension and unresponsive distress required intubation and pressors. Patient was unable to urinate and showed significant urinary retention but staff was unable to place Craig and therefore IR placed a suprapubic catheter. On arrival to the emergency department patient was found to be hypotensive and hypoxic. Shortly after arrival patient was intubated and place on mechanical ventilation, central line was placed and started on vasopressors. Past Medical History Patient's past medical history is significant for CAD, CHF, HTN, hyperlipidemia and Diabetes Past Surgical History Past Social History: Unable to obtain due to clinical condition Family History: Diabetes mellitus G8 MOTHER, Allergies: Coded Allergies: NO KNOWN ALLERGIES (Unverified , 04/21/24) Home Meds Active Scripts Metronidazole (Flagyl) 500 Mg Tab, 1 TAB PO BID, #10 TAB Prov:CHINO RIVERA MD 04/23/24 Famotidine (Pepcid AC) 20 Mg Tab, 20 MG PO DAILY, #20 TAB Prov:CHINO RIVERA MD 04/23/24 Ibuprofen Micronized (Ibuprofen) 800 Mg Tab, 1 TAB PO TID, #14 TAB Prov:CHINO RIVERA MD 04/23/24 Reported Medications Ipratropium-Albuterol (Ipratropium [place]/Albut) 1 Rukhsana Rukhsana, 1 VIAL IN TID PRN for 40 Days, #180 04/23/24 Semaglutide (Ozempic) 8 Mg/3 Ml Inj, 2 MG SC QWEEKLY for 28 Days, #3 04/22/24 Apixaban Base (ELIQUIS) 5 Mg Tab, 1 TAB PO BID 04/22/24 Lisinopril (Lisinopril) 20 Mg Tab, 1 TAB PO DAILY 04/22/24 Metoprolol Succinate (Metoprolol Succinate Er) 50 Mg Tab, 1 TAB PO DAILY 04/22/24 Atorvastatin Calcium (ATORVASTATIN CALCIUM) 20 Mg Tab, 1 TAB PO DAILY 04/22/24 Furosemide (Furosemide) 40 Mg Tab, 1 TAB PO BID 04/22/24 Current Medications Current Medications Medications (Trade) Dose Ordered Sig/Ace Route PRN Reason Start Time Stop Time Status Last Admin Norepinephrine Bitartrate 250 ml @ 3.75 mls/hr Q24H IV 08/28/24 22:00 08/29/24 08:24 DC 08/29/24 03:30 Vasopressin 20 units/Sodium Chloride 100 ml @ 9 mls/hr Q11H7M IV 08/28/24 22:00 08/29/24 09:00 Midazolam HCl 50 ml @ 1 mls/hr Q24H IV 08/28/24 22:30 08/29/24 11:37 Fentanyl Citrate 250 ml @ 2.5 mls/hr Q24H IV 08/28/24 22:30 08/28/24 23:00 Phenylephrine HCl 250 ml @ 30 mls/hr Q8H20M IV 08/28/24 22:30 08/28/24 22:51 DC Phenylephrine HCl 250 ml @ 30 mls/hr Q8H20M IV 08/28/24 22:45 08/29/24 05:29 DC 08/28/24 22:55 Dobutamine HCl/ Dextrose 250 ml @ 45 mls/hr Q5H34M IV 08/29/24 01:00 Cancel Dopamine HCl/ Dextrose 250 ml @ 28.125 mls/ hr Q8H54M IV 08/29/24 01:15 08/29/24 09:59 Acetaminophen (Tylenol Tablet) 650 mg Q6HP PRN PO PAIN SCALE 1-3 OR TEMP>100.4 08/29/24 03:45 Ondansetron HCl (Zofran) 4 mg Q4HP PRN IV NAUSEA / VOMITING 08/29/24 03:45 Enoxaparin Sodium (Lovenox) 40 mg DAILY SC 08/29/24 10:00 08/29/24 10:00 Nitroglycerin (Ntrostat Sublingual) 0.4 mg Q5MINP PRN SL FOR CHEST PAIN 08/29/24 03:45 Morphine Sulfate 2 mg Q30M PRN IV FOR CHEST PAIN 08/29/24 03:45 Vancomycin HCl 0 ml @ 0 mls/hr UD IV 08/29/24 03:45 Cefepime HCl 50 ml @ 12.5 mls/hr TID IV 08/29/24 06:00 08/29/24 06:00 Phenylephrine HCl 80 mg/Sodium Chloride 250 ml @ 7.5 mls/hr Q24H IV 08/29/24 05:30 08/29/24 11:38 Acetaminophen (Ofirmev) 1,000 mg [id number] PRN IV PAIN SCALE 1-3 OR TEMP>100.4 08/29/24 06:00 08/29/24 06:00 DC 08/29/24 05:54 Norepinephrine Bitartrate 32 mg/ Sodium Chloride 250 ml @ 0.938 mls/ hr Q24H IV 08/29/24 08:15 08/29/24 09:00 Review of Systems Unable to complete due to current condition Vital Signs Vital Signs Date Time Temp Pulse Resp B/P (MAP) Pulse Ox O2 Delivery O2 Flow Rate FiO2 08/29/24 12:30 100.8 82 19 115/53 (73) 100 213.4 08/29/24 12:00 90 08/29/24 12:00 Mechanical Ventilator+ 08/28/24 20:45 6 Physical Exam General Appearance: Other (Ill-appearing, obese, sedated-intubated on mechanical ventilator) Respiratory: Other (Diminished air exchange. Tolerating mechanical ventilation) Cardiovascular: Regular rate, Normal S1, Normal S2 Abdominal: Soft, No tenderness Extremities: No clubbing, Other (BLE pulses 1+. Extremities cool to palpation. ) Skin: No rashes, No breakdown Neuro: Other (Patient is sedated, intubated on mechanical ventilator) Psych/Mental Status: Other (Unable to assess) Labs/Diagnostic Data Labs Test 08/29/24 12:19 08/29/24 08:05 08/29/24 04:56 08/28/24 23:31 Range/Units POC Glucose 101 70-106 mg/dl Blood Gas Specimen Type Arterial Blood Gas Sample Site Left radial Blood Gas Patient Temperature 37.0 Arterial Blood Date Drawn [id number] Arterial Blood pH 7.137 *L 7.350-7.450 Arterial Blood Partial Pressure CO2 60.8 *H 35.0-48.0 mmHg Arterial Blood Partial Pressure O2 89.9 83.0-108.0 mmHg Arterial Blood HCO3 20.1 L 21.0-28.0 mmol/L Arterial Blood Oxygen Saturation 94.6 94.0-98.0 % Arterial Blood Base Excess -9.8 L -2.0-3.0 mmol/L Arterial Blood Oxyhemoglobin 93.4 L 94.0-98.0 % Arterial Blood Carboxyhemoglobin 0.7 0.5-1.5 % Arterial Blood Methemoglobin 0.6 0.0-1.5 % Mikal Test Modified Blood Gas Total Hemoglobin 15.50 13.5-17.5 g/dL Blood Gas Set Respiration Rate 18.0 Blood Gas Modality Vent - ac FiO2 % 100.0 Blood Gas Tidal Volume 550.0 Blood Gas PEEP or CPAP 8.0 Blood Gas Critical Value Read Back Yes Blood Gas Notified Whom Ernesto ortiz np Blood Gas Notified Time [id number] Blood Gas Notified By Mitesh cantu rrt White Blood Count 24.3 #H 4.4-10.8 10^3/uL Red Blood Count 4.72 4.5-5.90 10^6/uL Hemoglobin 14.0 13.5-17.5 g/dL Hematocrit 42.2 # 41.0-53.0 % Mean Corpuscular Volume 89.3 80.0-100.0 fL Mean Corpuscular Hemoglobin 29.6 28.0-32.0 pg Mean Corpuscular Hemoglobin Concent 33.1 32.0-36.0 g/dL Red Cell Distribution Width 15.0 H 11.8-14.3 % Platelet Count 152 140-450 10^3/uL Mean Platelet Volume 8.9 6.9-10.8 fL Neutrophils (%) (Auto) 37.0-80.0 % Lymphocytes (%) (Auto) 10.0-50.0 % Monocytes (%) (Auto) 0.0-12.0 % Basophils (%) (Auto) 0.0-2.0 % Neutrophils # (Auto) 1.6-8.6 10 ^3/uL Lymphocytes # (Auto) 0.4-5.4 10 ^3/uL Monocytes # (Auto) 0-1.3 10 ^3/uL Differential Total Cells Counted 100.0 100 Neutrophils % (Manual) 60 37.0-80.0 Band Neutrophils % (Manual) 30 Lymphocytes % (Manual) 5 L 10.0-50.0 Monocytes % (Manual) 5 0-12 Eosinophils % (Manual) 0 0-7 Basophils % (Manual) 0 0.0-2.0 Metamyelocytes % (manual) 0 Myelocytes % (Manual) 0 Promyelocytes % (Manual) 0 Blast Cells % (Manual) 0 Reactive Lymphocytes 0 Platelet Estimate Adequate Prothrombin Time 12.0 H 9.3-11.8 sec Prothrombin Time INR 1.15 0.9-1.15 Activated Partial Thromboplast Time 31.2 24.5-34.5 SEC Sodium Level 137 136-145 mmol/L Potassium Level 3.9 3.5-5.1 mmol/L Chloride Level 100 98-107 mmol/L Carbon Dioxide Level 25 20-31 mmol/L Anion Gap 12 5-15 Blood Urea Nitrogen 40 H 9-23 mg/dL Creatinine 3.59 H 0.700-1.30 mg/dL Glomerular Filtration Rate Calc 18 >90 mL/min BUN/Creatinine Ratio 11.1 10.0-20.0 Serum Glucose 119 H 74-106 mg/dL Calcium Level 8.7 8.7-10.4 mg/dL Random Vancomycin Level 10.7 H 5-10 ug/mL Troponin I High Sensitivity 67 *H </=54 ng/L Test 08/28/24 22:50 08/28/24 20:45 Range/Units Lactic Acid Level 4.1 *H 0.4-2.0 mmol/L Total Bilirubin 1.5 H 0.2-1.0 mg/dL Aspartate Amino Transferase (AST) 45 H 13-40 U/L Alanine Aminotransferase (ALT) 29 7-40 U/L Alkaline Phosphatase 93 46-116 U/L B-Type Natriuretic Peptide 820.23 0-100 pg/mL Total Protein 6.5 5.7-8.2 g/dL Albumin 3.9 3.2-4.8 g/dL Lipase 40 12-53 U/L Microbiology Date/Time Source Procedure Growth Status 08/28/24 20:35 Blood Blood Culture - Preliminary Resulted Assessment Patient is a 69-year-old male presents to the hospital with: Septic shock Bacteremia Severe OG on CKD Metabolic acidosis Altered mental status Urinary outlet obstruction S/P suprapubic catheter Acute respiratory failure with hypoxia S/P intubation on mechanical ventilator Acute on chronic CHF exacerbation Elevated troponin Acute urinary retention Diabetes mellitus Recommendations: Patient is on multiple pressors, he is critically sick with end organ damage Follow blood and urine cultures Due to history of fall consider CT Head Continue broad spectrum IV Antibiotics for now Urology, Nephrology and Cardiology on board Antibiotic status: Vancomycin IV [Started on 08/28 - Ongoing] Cefepime IV [Started on 08/28 - Ongoing] Flagyl IV [Started on 08/01] 08/29, Vancomycin random is 10.7 WBC elevated, we will monitor Creatinine elevated 08/28, Blood culture showed Gram Positive Cocci in chains Patient is critically sick Prognosis is very poor Critical Time: 45 minutes spent during encounter. Thank you for consult Plan discussed with: GENESIS De La Torre MD Aug 29, 2024 12:42
[2024-08-29] MEDS: ACETAMINOPHEN 325 MG TAB PO PRN (12:49)
[2024-08-29 13:08] LABS: Base Excess -12.6 mmol/L (-2.0-3.0)
[2024-08-29] MEDS: SODIUM BICARB 8.4% 50Meq/50ml SYR Vial IV ONE (15:19)
[2024-08-29 16:05] LABS: Urine Bacteria FEW /hpf (None Seen); Urine Blood 2+ /uL (Negative); Urine Clarity Turbid (Clear); Urine Color Yellow (Yellow); Urine Mucus FEW (None Seen); Urine Protein, UAD 1+ (Negative); Urine Specific Gravity 1.014 (1.001-1.035); Urine Squamous Epithelial Cell None Seen /hpf (<5); Urine Urobilinogen Normal (Negative); Urine WBC 22 /HPF (0-3); Urine pH 6.5 (5.0-9.0)
[2024-08-29] MEDS: EPINEPHrine HCL 250 ML IV SCH (16:15)
[2024-08-29] MEDS: MAGNESIUM SULFATE 1GM/100ML 100 ML IV SCH (16:39)
[2024-08-29] MEDS: metroNIDAZOLE 500MG/100ML 100 ML IV ONE (16:39)
--- NOTE | 2024-08-29 16:52 | DVHINCON2 ---
Date of service: Aug 29, 2024 Referring Physician Hospitalist Reason for Consultation Acute kidney injury History of Present Illness 69-year-old morbidly obese male with past medical history of congestive heart failure and high blood pressure history obtain by as patient is critically ill. Patient was brought into the hospital by family due to change in cognitive status and increased lethargy. His ER course was notable for hypotension and unresponsive distress required intubation and pressors. Patient was unable to urinate and showed significant urinary retention but staff was unable to place Craig and therefore IR placed a suprapubic catheter. Nephrology consulted due to elevated creatinine level. Based on previous hospitalization renal function appeared to be in the mid 40s indicating stage 3 kidney disease previously. Patient now is on multiple pressors in the ICU intubated. Past Medical History chf htn Allergies: Coded Allergies: NO KNOWN ALLERGIES (Unverified , 04/21/24) Home Meds Active Scripts Metronidazole (Flagyl) 500 Mg Tab, 1 TAB PO BID, #10 TAB Prov:CHINO RIVERA MD 04/23/24 Famotidine (Pepcid AC) 20 Mg Tab, 20 MG PO DAILY, #20 TAB Prov:CHINO RIVERA MD 04/23/24 Ibuprofen Micronized (Ibuprofen) 800 Mg Tab, 1 TAB PO TID, #14 TAB Prov:CHINO RIVERA MD 04/23/24 Reported Medications Ipratropium-Albuterol (Ipratropium [place]/Albut) 1 Rukhsana Rukhsana, 1 VIAL IN TID PRN for 40 Days, #180 04/23/24 Semaglutide (Ozempic) 8 Mg/3 Ml Inj, 2 MG SC QWEEKLY for 28 Days, #3 04/22/24 Apixaban Base (ELIQUIS) 5 Mg Tab, 1 TAB PO BID 04/22/24 Lisinopril (Lisinopril) 20 Mg Tab, 1 TAB PO DAILY 04/22/24 Metoprolol Succinate (Metoprolol Succinate Er) 50 Mg Tab, 1 TAB PO DAILY 04/22/24 Atorvastatin Calcium (ATORVASTATIN CALCIUM) 20 Mg Tab, 1 TAB PO DAILY 04/22/24 Furosemide (Furosemide) 40 Mg Tab, 1 TAB PO BID 04/22/24 Current Medications Current Medications Medications (Trade) Dose Ordered Sig/Ace Route PRN Reason Start Time Stop Time Status Last Admin Norepinephrine Bitartrate 250 ml @ 3.75 mls/hr Q24H IV 08/28/24 22:00 08/29/24 08:24 DC 08/29/24 03:30 Vasopressin 20 units/Sodium Chloride 100 ml @ 9 mls/hr Q11H7M IV 08/28/24 22:00 08/29/24 09:00 Midazolam HCl 50 ml @ 1 mls/hr Q24H IV 08/28/24 22:30 08/29/24 11:37 Fentanyl Citrate 250 ml @ 2.5 mls/hr Q24H IV 08/28/24 22:30 08/29/24 13:01 Phenylephrine HCl 250 ml @ 30 mls/hr Q8H20M IV 08/28/24 22:30 08/28/24 22:51 DC Phenylephrine HCl 250 ml @ 30 mls/hr Q8H20M IV 08/28/24 22:45 08/29/24 05:29 DC 08/28/24 22:55 Dobutamine HCl/ Dextrose 250 ml @ 45 mls/hr Q5H34M IV 08/29/24 01:00 Cancel Dopamine HCl/ Dextrose 250 ml @ 28.125 mls/ hr Q8H54M IV 08/29/24 01:15 08/29/24 09:59 Acetaminophen (Tylenol Tablet) 650 mg Q6HP PRN PO PAIN SCALE 1-3 OR TEMP>100.4 08/29/24 03:45 08/29/24 12:49 Ondansetron HCl (Zofran) 4 mg Q4HP PRN IV NAUSEA / VOMITING 08/29/24 03:45 Enoxaparin Sodium (Lovenox) 40 mg DAILY SC 08/29/24 10:00 08/29/24 10:00 Nitroglycerin (Ntrostat Sublingual) 0.4 mg Q5MINP PRN SL FOR CHEST PAIN 08/29/24 03:45 Morphine Sulfate 2 mg Q30M PRN IV FOR CHEST PAIN 08/29/24 03:45 Vancomycin HCl 0 ml @ 0 mls/hr UD IV 08/29/24 03:45 Cefepime HCl 50 ml @ 12.5 mls/hr TID IV 08/29/24 06:00 08/29/24 12:50 Phenylephrine HCl 80 mg/Sodium Chloride 250 ml @ 7.5 mls/hr Q24H IV 08/29/24 05:30 08/29/24 11:38 Acetaminophen (Ofirmev) 1,000 mg [id number] PRN IV PAIN SCALE 1-3 OR TEMP>100.4 08/29/24 06:00 08/29/24 06:00 DC 08/29/24 05:54 Norepinephrine Bitartrate 32 mg/ Sodium Chloride 250 ml @ 0.938 mls/ hr Q24H IV 08/29/24 08:15 08/29/24 09:00 Epinephrine HCl 250 ml @ 7.5 mls/hr Q24H IV 08/29/24 16:15 Metronidazole 100 ml @ 100 mls/hr Q8HR IV 08/29/24 22:00 Magnesium Sulfate/ Dextrose 100 ml @ 100 mls/hr Q1HR IV 08/29/24 17:00 08/29/24 18:59 08/29/24 16:39 Family History: Diabetes mellitus G8 MOTHER, Review of Systems Can not obtain due to critical illness H&P Exam Vital Signs/I&O Vital Sign Date Time Temp Pulse Resp B/P (MAP) Pulse Ox O2 Delivery O2 Flow Rate FiO2 08/29/24 16:21 80 24 89/59 (69) 99 65 08/29/24 16:00 Mechanical Ventilator+ 08/29/24 16:00 99.7 211.5 08/28/24 20:45 6 Intake and Output 08/28/24 08/29/24 19:00 07:00 Intake Total 452.50 ml Balance 452.50 ml Intake IV Total 452.50 ml Physical Exam Morbidly obese male Intubated Sedated Asthma as pressors Abdomen is large non firm non guarded has suprapubic catheter Regular rate and rhythm Labs/Diagnostic Data Labs/Diagnostic Data Laboratory Tests Test 08/29/24 16:05 08/29/24 15:08 08/29/24 12:56 08/29/24 12:19 Range/Units Urine Color Yellow Yellow Urine Clarity Turbid H Clear Urine pH 6.5 5.0-9.0 Urine Specific [place] 1.014 1.001-1.035 Urine Protein 1+ H Negative Urine Ketones Negative Negative Urine Blood 2+ H Negative /uL Urine Nitrite Negative Negative Urine Bilirubin Negative Negative Urine Urobilinogen Normal Negative mg/dL Urine Leukocyte Esterase 2+ Negative /uL Urine RBC 3 0 - 3 /hpf Urine Microscopic WBC 22 H 0-3 /HPF Urine Squamous Epithelial Cells None seen <5 /hpf Urine Bacteria Few H None Seen /hpf Urine Mucus Few None Seen Urine Glucose Normal Normal mg/dL Blood Gas Specimen Type Arterial Blood Gas Sample Site Right radial Blood Gas Patient Temperature 37.0 Arterial Blood Date Drawn [id number] Arterial Blood pH 7.178 *L 7.350-7.450 Arterial Blood Partial Pressure CO2 42.2 35.0-48.0 mmHg Arterial Blood Partial Pressure O2 118.5 H 83.0-108.0 mmHg Arterial Blood HCO3 15.3 L 21.0-28.0 mmol/L Arterial Blood Oxygen Saturation 97.5 94.0-98.0 % Arterial Blood Base Excess -12.6 L -2.0-3.0 mmol/L Arterial Blood Oxyhemoglobin 96.9 94.0-98.0 % Arterial Blood Carboxyhemoglobin 0.1 L 0.5-1.5 % Arterial Blood Methemoglobin 0.5 0.0-1.5 % Mikal Test N/a Blood Gas Total Hemoglobin 15.90 13.5-17.5 g/dL Blood Gas Set Respiration Rate 24.0 Blood Gas Modality Vent - ac Blood Gas Spontaneous Rate 24 FiO2 % 90.0 Blood Gas Tidal Volume 500.0 Blood Gas PEEP or CPAP 8.0 Blood Gas Critical Value Read Back Yes Blood Gas Notified Whom Dr. palma Blood Gas Notified Time [id number] Blood Gas Notified By yulisa Kline rt. POC Glucose 101 70-106 mg/dl Test 08/29/24 08:05 08/29/24 04:56 08/28/24 23:31 08/28/24 23:20 Range/Units Blood Gas Specimen Type Arterial Arterial Blood Gas Sample Site Left radial Right radial Blood Gas Patient Temperature 37.0 37.0 Arterial Blood Date Drawn [id number] Arterial Blood pH 7.137 *L 7.252 L 7.350-7.450 Arterial Blood Partial Pressure CO2 60.8 *H 48.2 H 35.0-48.0 mmHg Arterial Blood Partial Pressure O2 89.9 78.1 L 83.0-108.0 mmHg Arterial Blood HCO3 20.1 L 20.8 L 21.0-28.0 mmol/L Arterial Blood Oxygen Saturation 94.6 92.8 L 94.0-98.0 % Arterial Blood Base Excess -9.8 L -6.6 L -2.0-3.0 mmol/L Arterial Blood Oxyhemoglobin 93.4 L 90.9 L 94.0-98.0 % Arterial Blood Carboxyhemoglobin 0.7 1.4 0.5-1.5 % Arterial Blood Methemoglobin 0.6 0.6 0.0-1.5 % Mikal Test Modified Modified Blood Gas Total Hemoglobin 15.50 14.90 13.5-17.5 g/dL Blood Gas Set Respiration Rate 18.0 18.0 Blood Gas Modality Vent - ac Vent - ac FiO2 % 100.0 100.0 Blood Gas Tidal Volume 550.0 550.0 Blood Gas PEEP or CPAP 8.0 5.0 Blood Gas Critical Value Read Back Yes Blood Gas Notified Whom Ernesto ortiz np Blood Gas Notified Time [id number] Blood Gas Notified By Mitesh cantu rrt White Blood Count 24.3 #H 4.4-10.8 10^3/uL Red Blood Count 4.72 4.5-5.90 10^6/uL Hemoglobin 14.0 13.5-17.5 g/dL Hematocrit 42.2 # 41.0-53.0 % Mean Corpuscular Volume 89.3 80.0-100.0 fL Mean Corpuscular Hemoglobin 29.6 28.0-32.0 pg Mean Corpuscular Hemoglobin Concent 33.1 32.0-36.0 g/dL Red Cell Distribution Width 15.0 H 11.8-14.3 % Platelet Count 152 140-450 10^3/uL Mean Platelet Volume 8.9 6.9-10.8 fL Neutrophils (%) (Auto) 37.0-80.0 % Lymphocytes (%) (Auto) 10.0-50.0 % Monocytes (%) (Auto) 0.0-12.0 % Basophils (%) (Auto) 0.0-2.0 % Neutrophils # (Auto) 1.6-8.6 10 ^3/uL Lymphocytes # (Auto) 0.4-5.4 10 ^3/uL Monocytes # (Auto) 0-1.3 10 ^3/uL Differential Total Cells Counted 100.0 100 Neutrophils % (Manual) 60 37.0-80.0 Band Neutrophils % (Manual) 30 Lymphocytes % (Manual) 5 L 10.0-50.0 Monocytes % (Manual) 5 0-12 Eosinophils % (Manual) 0 0-7 Basophils % (Manual) 0 0.0-2.0 Metamyelocytes % (manual) 0 Myelocytes % (Manual) 0 Promyelocytes % (Manual) 0 Blast Cells % (Manual) 0 Reactive Lymphocytes 0 Platelet Estimate Adequate Prothrombin Time 12.0 H 9.3-11.8 sec Prothrombin Time INR 1.15 0.9-1.15 Activated Partial Thromboplast Time 31.2 24.5-34.5 SEC Sodium Level 137 136-145 mmol/L Potassium Level 3.9 3.5-5.1 mmol/L Chloride Level 100 98-107 mmol/L Carbon Dioxide Level 25 20-31 mmol/L Anion Gap 12 5-15 Blood Urea Nitrogen 40 H 9-23 mg/dL Creatinine 3.59 H 0.700-1.30 mg/dL Glomerular Filtration Rate Calc 18 >90 mL/min BUN/Creatinine Ratio 11.1 10.0-20.0 Serum Glucose 119 H 74-106 mg/dL Calcium Level 8.7 8.7-10.4 mg/dL Magnesium Level 1.6 1.6-2.6 mg/dL Random Vancomycin Level 10.7 H 5-10 ug/mL Troponin I High Sensitivity 67 *H </=54 ng/L Test 08/28/24 22:50 08/28/24 21:40 08/28/24 20:45 Range/Units Lactic Acid Level 4.1 *H 4.6 *H 0.4-2.0 mmol/L Troponin I High Sensitivity 60 *H 62 *H </=54 ng/L White Blood Count 11.9 H 4.4-10.8 10^3/uL Red Blood Count 4.31 L 4.5-5.90 10^6/uL Hemoglobin 12.6 L 13.5-17.5 g/dL Hematocrit 37.8 L 41.0-53.0 % Mean Corpuscular Volume 87.7 80.0-100.0 fL Mean Corpuscular Hemoglobin 29.3 28.0-32.0 pg Mean Corpuscular Hemoglobin Concent 33.4 32.0-36.0 g/dL Red Cell Distribution Width 14.6 H 11.8-14.3 % Platelet Count 136 L 140-450 10^3/uL Mean Platelet Volume 9.7 6.9-10.8 fL Neutrophils (%) (Auto) 37.0-80.0 % Lymphocytes (%) (Auto) 10.0-50.0 % Monocytes (%) (Auto) 0.0-12.0 % Basophils (%) (Auto) 0.0-2.0 % Neutrophils # (Auto) 1.6-8.6 10 ^3/uL Lymphocytes # (Auto) 0.4-5.4 10 ^3/uL Monocytes # (Auto) 0-1.3 10 ^3/uL Differential Total Cells Counted 100.0 100 Neutrophils % (Manual) 61 37.0-80.0 Band Neutrophils % (Manual) 29 Lymphocytes % (Manual) 4 L 10.0-50.0 Monocytes % (Manual) 6 0-12 Eosinophils % (Manual) 0 0-7 Basophils % (Manual) 0 0.0-2.0 Metamyelocytes % (manual) 0 Myelocytes % (Manual) 0 Promyelocytes % (Manual) 0 Blast Cells % (Manual) 0 Reactive Lymphocytes 0 Platelet Estimate Decreased Sodium Level 135 L 136-145 mmol/L Potassium Level 3.8 3.5-5.1 mmol/L Chloride Level 101 98-107 mmol/L Carbon Dioxide Level 23 20-31 mmol/L Anion Gap 11 5-15 Blood Urea Nitrogen 34 H 9-23 mg/dL Creatinine 2.62 H 0.700-1.30 mg/dL Glomerular Filtration Rate Calc 26 >90 mL/min BUN/Creatinine Ratio 13.0 10.0-20.0 Serum Glucose 89 74-106 mg/dL Calcium Level 8.8 8.7-10.4 mg/dL Total Bilirubin 1.5 H 0.2-1.0 mg/dL Aspartate Amino Transferase (AST) 45 H 13-40 U/L Alanine Aminotransferase (ALT) 29 7-40 U/L Alkaline Phosphatase 93 46-116 U/L B-Type Natriuretic Peptide 820.23 0-100 pg/mL Total Protein 6.5 5.7-8.2 g/dL Albumin 3.9 3.2-4.8 g/dL Lipase 40 12-53 U/L Assessment Acute kidney injury on chronic kidney disease stage 3 Kidney injury hemodynamically mediated likely in the setting of septic shock 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 Echocardiogram to assess current renal function Explained to family at bedside patient has guarded prognosis and possibility of requiring hemodialysis treatment should renal function continue to decline. Critical care time spent 33 minutes Plan discussed with: Spouse, Son DAEVINEET MD Aug 29, 2024 16:52
[2024-08-29 17:10] LABS: Lactic Acid w/Reflex 6.8 mmol/L (0.4-2.0)
[2024-08-29] MEDS ORDERED: SODIUM CHLORIDE 0.9% 1,000 ML IV SCH (17:15)
[2024-08-29] MEDS ORDERED: DOCUSATE ORAL LIQUID 100 MG/10 ML UD GT PRN (17:30)
[2024-08-29 17:51] LABS: COVID19 ANTIGEN SOFIA FIA NEGATIVE (NEGATIVE); Rapid Influenza A Negative (Negative); Rapid Influenza B Negative (Negative)
[2024-08-29] MEDS: D5W/SOD CHLO 0.9% 1,000 ML IV SCH (18:00)
[2024-08-29] MEDS: ACCU-CHEK COMFORT CURVE STRIP VI SCH (18:12)
[2024-08-29 20:00] LABS: Lactic Acid w/Reflex 7.5 mmol/L (0.4-2.0)
[2024-08-29] MEDS: metroNIDAZOLE 500MG/100ML 100 ML IV SCH (22:33)
[2024-08-29] MEDS: DEXTROSE (50%) 50ML SYRG IV PRN (23:00)
[2024-08-29] MEDS: DEXTROSE 50% SYRINGE 50 ML IV ONE (23:08)
[2024-08-29] MEDS: SODIUM CHLORIDE 0.9% 500 ML IV ONE (23:31)
--- NOTE | 2024-08-29 23:44 | DVHINCON2 ---
Date of service: Aug 29, 2024 Referring Physician Ernesto Taylor NP Reason for Consultation Acute hypoxic/hypercarbic respiratory failure requiring mechanical ventilator. History of Present Illness HPI information is limited due to patient's critical condition. A 69-year-old man with past medical history of CHF, CAD, DM, hypertension, hyperlipidemia who presented to ED on 08/28/24 with complaints of dizziness. On arrival to the emergency department, patient was found to be hypotensive and hypoxic. Shortly after arrival, patient was intubated and placed on mechanical ventilation. Central line was placed and started on vasopressors. Patient was admitted for further care and pulmonary consultation is requested for evaluation and management of acute hypoxic/hypercarbic respiratory failure requiring mechanical ventilator. Review of Systems: Unable to obtain d/t intubated status. Past Medical History: CAD, CHF, diabetes, hypertension, hyperlipidemia, small bowel obstruction Past Surgical History: None Medications: Reviewed. Allergies: No known drug allergies. Family History: Diabetes mellitus Social History: Unable to obtain. Family History: Diabetes mellitus G8 MOTHER, Allergies: Coded Allergies: NO KNOWN ALLERGIES (Unverified , 04/21/24) Home Meds Active Scripts Metronidazole (Flagyl) 500 Mg Tab, 1 TAB PO BID, #10 TAB Prov:CHINO RIVERA MD 04/23/24 Famotidine (Pepcid AC) 20 Mg Tab, 20 MG PO DAILY, #20 TAB Prov:CHINO RIVERA MD 04/23/24 Ibuprofen Micronized (Ibuprofen) 800 Mg Tab, 1 TAB PO TID, #14 TAB Prov:CHINO RIVERA MD 04/23/24 Reported Medications Ipratropium-Albuterol (Ipratropium [place]/Albut) 1 Rukhsana Rukhsana, 1 VIAL IN TID PRN for 40 Days, #180 04/23/24 Semaglutide (Ozempic) 8 Mg/3 Ml Inj, 2 MG SC QWEEKLY for 28 Days, #3 04/22/24 Apixaban Base (ELIQUIS) 5 Mg Tab, 1 TAB PO BID 04/22/24 Lisinopril (Lisinopril) 20 Mg Tab, 1 TAB PO DAILY 04/22/24 Metoprolol Succinate (Metoprolol Succinate Er) 50 Mg Tab, 1 TAB PO DAILY 11/19/24 Atorvastatin Calcium (ATORVASTATIN CALCIUM) 20 Mg Tab, 1 TAB PO DAILY 04/22/24 Furosemide (Furosemide) 40 Mg Tab, 1 TAB PO BID 04/22/24 Current Medications Current Medications Medications (Trade) Dose Ordered Sig/Ace Route PRN Reason Start Time Stop Time Status Last Admin Dobutamine HCl/ Dextrose 250 ml @ 45 mls/hr Q5H34M IV 08/29/24 01:00 Cancel Dopamine HCl/ Dextrose 250 ml @ 28.125 mls/ hr Q8H54M IV 08/29/24 01:15 08/29/24 20:01 Acetaminophen (Tylenol Tablet) 650 mg Q6HP PRN PO PAIN SCALE 1-3 OR TEMP>100.4 08/29/24 03:45 08/29/24 18:47 Ondansetron HCl (Zofran) 4 mg Q4HP PRN IV NAUSEA / VOMITING 08/29/24 03:45 Enoxaparin Sodium (Lovenox) 40 mg DAILY SC 08/29/24 10:00 08/29/24 10:00 Nitroglycerin (Ntrostat Sublingual) 0.4 mg Q5MINP PRN SL FOR CHEST PAIN 08/29/24 03:45 Morphine Sulfate 2 mg Q30M PRN IV FOR CHEST PAIN 08/29/24 03:45 Vancomycin HCl 0 ml @ 0 mls/hr UD IV 08/29/24 03:45 Cefepime HCl 50 ml @ 12.5 mls/hr TID IV 08/29/24 06:00 08/29/24 22:33 Phenylephrine HCl 80 mg/Sodium Chloride 250 ml @ 7.5 mls/hr Q24H IV 08/29/24 05:30 08/29/24 18:48 Acetaminophen (Ofirmev) 1,000 mg [id number] PRN IV PAIN SCALE 1-3 OR TEMP>100.4 08/29/24 06:00 08/29/24 06:00 DC 08/29/24 05:54 Norepinephrine Bitartrate 32 mg/ Sodium Chloride 250 ml @ 0.938 mls/ hr Q24H IV 08/29/24 08:15 08/29/24 09:00 Epinephrine HCl 250 ml @ 7.5 mls/hr Q24H IV 08/29/24 16:15 Metronidazole 100 ml @ 100 mls/hr Q8HR IV 08/29/24 22:00 08/29/24 22:33 Magnesium Sulfate/ Dextrose 100 ml @ 100 mls/hr Q1HR IV 08/29/24 17:00 08/29/24 18:59 DC 08/29/24 17:35 Diagnostic Test (Pha) (Accu-Chek Comfort Curve T) 1 strip Q6HR 08/29/24 18:00 08/29/24 18:12 Sodium Chloride 1,000 ml @ 145 mls/hr Q6H54M IV 08/29/24 17:15 08/29/24 17:27 DC Dextrose/Sodium Chloride 1,000 ml @ 145 mls/hr Q6H54M IV 08/29/24 17:30 08/29/24 18:00 Pantoprazole Sodium (Protonix) 40 mg DAILY IV 08/30/24 10:00 Docusate Sodium (Colace Liquid) 100 mg BID PRN GT CONSTIPATION 08/29/24 17:30 Vital Signs Vital Signs Date Time Temp Pulse Resp B/P (MAP) Pulse Ox O2 Delivery O2 Flow Rate FiO2 08/29/24 21:49 100.4 75 24 118/46 100 100 100.4 08/29/24 18:00 Mechanical Ventilator+ 08/28/24 20:45 6 Physical Exam Gen.: Patient lying in bed in medical ICU. Sedated, intubated on mechanical ventilator. Head: Normocephalic, atraumatic. Eyes: PERRLA. Ears: Normal external anatomy. Throat: Endotracheal tube and orogastric tube in place. Neck: Supple, trachea midline. Chest: Transmitted breath sounds bilaterally. Decreased air entry bilaterally. No wheezing. Bibasilar crackles. Cardiovascular: Positive S1, positive S2. Regular rate and rhythm. Abdomen: Positive bowel sounds in all 4 quadrants. Soft, nontender, nondistende d. : Craig in place. Normal external genitalia. Rectal: Deferred. Skin: Warm, dry. Intact. Extremities: 2+ radial pulses bilaterally. No lower extremity edema. Neuro: Sedated. Labs/Diagnostic Data Labs Test 08/29/24 22:53 08/29/24 19:06 08/29/24 16:54 08/29/24 15:08 Range/Units POC Glucose 37 *L 70-106 mg/dl Lactic Acid Level 7.5 *H 0.4-2.0 mmol/L Influenza Type A Antigen Negative Negative Influenza Type B Antigen Negative Negative SARS-CoV-2 Antigen (Rapid) Negative NEGATIVE Urine Color Yellow Yellow Urine Clarity Turbid H Clear Urine pH 6.5 5.0-9.0 Urine Specific [place] 1.014 1.001-1.035 Urine Protein 1+ H Negative Urine Ketones Negative Negative Urine Blood 2+ H Negative /uL Urine Nitrite Negative Negative Urine Bilirubin Negative Negative Urine Urobilinogen Normal Negative mg/dL Urine Leukocyte Esterase 2+ Negative /uL Urine RBC 3 0 - 3 /hpf Urine Microscopic WBC 22 H 0-3 /HPF Urine Squamous Epithelial Cells None seen <5 /hpf Urine Bacteria Few H None Seen /hpf Urine Mucus Few None Seen Urine Glucose Normal Normal mg/dL Test 08/29/24 12:56 08/29/24 04:56 08/28/24 23:31 08/28/24 20:45 Range/Units Blood Gas Specimen Type Arterial Blood Gas Sample Site Right radial Blood Gas Patient Temperature 37.0 Arterial Blood Date Drawn [id number] Arterial Blood pH 7.178 *L 7.350-7.450 Arterial Blood Partial Pressure CO2 42.2 35.0-48.0 mmHg Arterial Blood Partial Pressure O2 118.5 H 83.0-108.0 mmHg Arterial Blood HCO3 15.3 L 21.0-28.0 mmol/L Arterial Blood Oxygen Saturation 97.5 94.0-98.0 % Arterial Blood Base Excess -12.6 L -2.0-3.0 mmol/L Arterial Blood Oxyhemoglobin 96.9 94.0-98.0 % Arterial Blood Carboxyhemoglobin 0.1 L 0.5-1.5 % Arterial Blood Methemoglobin 0.5 0.0-1.5 % Mikal Test N/a Blood Gas Total Hemoglobin 15.90 13.5-17.5 g/dL Blood Gas Set Respiration Rate 24.0 Blood Gas Modality Vent - ac Blood Gas Spontaneous Rate 24 FiO2 % 90.0 Blood Gas Tidal Volume 500.0 Blood Gas PEEP or CPAP 8.0 Blood Gas Critical Value Read Back Yes Blood Gas Notified Whom Dr. palma Blood Gas Notified Time [id number] Blood Gas Notified By yulisa Kline rt. White Blood Count 24.3 #H 4.4-10.8 10^3/uL Red Blood Count 4.72 4.5-5.90 10^6/uL Hemoglobin 14.0 13.5-17.5 g/dL Hematocrit 42.2 # 41.0-53.0 % Mean Corpuscular Volume 89.3 80.0-100.0 fL Mean Corpuscular Hemoglobin 29.6 28.0-32.0 pg Mean Corpuscular Hemoglobin Concent 33.1 32.0-36.0 g/dL Red Cell Distribution Width 15.0 H 11.8-14.3 % Platelet Count 152 140-450 10^3/uL Mean Platelet Volume 8.9 6.9-10.8 fL Neutrophils (%) (Auto) 37.0-80.0 % Lymphocytes (%) (Auto) 10.0-50.0 % Monocytes (%) (Auto) 0.0-12.0 % Basophils (%) (Auto) 0.0-2.0 % Neutrophils # (Auto) 1.6-8.6 10 ^3/uL Lymphocytes # (Auto) 0.4-5.4 10 ^3/uL Monocytes # (Auto) 0-1.3 10 ^3/uL Differential Total Cells Counted 100.0 100 Neutrophils % (Manual) 60 37.0-80.0 Band Neutrophils % (Manual) 30 Lymphocytes % (Manual) 5 L 10.0-50.0 Monocytes % (Manual) 5 0-12 Eosinophils % (Manual) 0 0-7 Basophils % (Manual) 0 0.0-2.0 Metamyelocytes % (manual) 0 Myelocytes % (Manual) 0 Promyelocytes % (Manual) 0 Blast Cells % (Manual) 0 Reactive Lymphocytes 0 Platelet Estimate Adequate Prothrombin Time 12.0 H 9.3-11.8 sec Prothrombin Time INR 1.15 0.9-1.15 Activated Partial Thromboplast Time 31.2 24.5-34.5 SEC Sodium Level 137 136-145 mmol/L Potassium Level 3.9 3.5-5.1 mmol/L Chloride Level 100 98-107 mmol/L Carbon Dioxide Level 25 20-31 mmol/L Anion Gap 12 5-15 Blood Urea Nitrogen 40 H 9-23 mg/dL Creatinine 3.59 H 0.700-1.30 mg/dL Glomerular Filtration Rate Calc 18 >90 mL/min BUN/Creatinine Ratio 11.1 10.0-20.0 Serum Glucose 119 H 74-106 mg/dL Calcium Level 8.7 8.7-10.4 mg/dL Magnesium Level 1.6 1.6-2.6 mg/dL Random Vancomycin Level 10.7 H 5-10 ug/mL Troponin I High Sensitivity 67 *H </=54 ng/L Total Bilirubin 1.5 H 0.2-1.0 mg/dL Aspartate Amino Transferase (AST) 45 H 13-40 U/L Alanine Aminotransferase (ALT) 29 7-40 U/L Alkaline Phosphatase 93 46-116 U/L B-Type Natriuretic Peptide 820.23 0-100 pg/mL Total Protein 6.5 5.7-8.2 g/dL Albumin 3.9 3.2-4.8 g/dL Lipase 40 12-53 U/L Microbiology Date/Time Source Procedure Growth Status 08/28/24 20:45 Blood Blood Culture - Preliminary NO GROWTH AFTER 24 HOURS OF INCUBATION. Resulted Assessment Impression: Acute hypoxic respiratory failure Acute hypercarbic respiratory failure On mechanical ventilator Acute on chronic CHF exacerbation Acute urinary retention Morbid obesity BMI 50.5 Plan: s/p intubation on mechanical ventilator. CXR image and report reviewed. Devices in place. Diffuse bilateral opacities. No pneumothorax. No pleural effusion. ABG reviewed, severe acidemia. Multiple vent changes were made On AC mode; RR 24, VT 500, PEEP 8, FiO2 90% Titrate FIO2 to keep O2 saturation above 90%. VAP bundle. Daily ABG and CXR while intubated Sedate for ventilator synchrony Continue antibiotics. F/u cultures. On multiple pressors for hemodynamic support On Levophed, vasopressin, Triston-Synephrine, dopamine Titrate to keep mean arterial pressure greater than 65 mmHg. Monitor renal function Monitor electrolytes. Supplement as necessary. Monitor ins and outs. Magnesium supplementation Diet and lifestyle modifications for weight reduction Morbid obesity - complicates all care GI prophylaxis. DVT prophylaxis. Prognosis: Poor given patient's multiple co-morbidities. Condition: Critical Rest of plan per hospitalist and other consultants. A total of 35 minutes of critical care time was spent reviewing the patient record, examining the patient, making a diagnostic and therapeutic plan, discussing this plan with the medical personnel, following up on diagnostic studies and following the patient for clinical stability excluding any and all procedures. At least 50% of this time was spent in direct, [id number] contact. Thank you, LB Taylor, for allowing me to participate in this patient's care. Further recommendations will depend on the patient's clinical course. Please do not hesitate to contact me if you have any questions or concerns. This medical document was created using an electronic medical record system with [employer] dictation system. Although these documentations are being carefully reviewed, there may still be some phonetic and typographical changes. The errors are purely typographical, due to imperfection on the software program, and do not reflect any compromise in the patient's medical care. Plan discussed with: Other (RN/LB Taylor/) NGOZI PALMA MD Aug 29, 2024 23:44
[2024-08-30] VITALS (80 sets, daily range): BP systolic 67–137; BP diastolic 26–93; PULSE 63–87; RESP 0–35; TEMP 100–101.3; O2SAT 74–100
[2024-08-30] MEDS: DEXTROSE 50% SYRINGE 50 ML IV ONE (02:11)
[2024-08-30] MEDS: DEXTROSE 10% 250 ML IV ONE (02:17)
[2024-08-30] MEDS: DEXTROSE 10% 1,000 ML IV ONE (02:42)
[2024-08-30] MEDS: SODIUM CHLORIDE 0.9% 1,000 ML IV SCH (03:00)
--- NOTE | 2024-08-30 03:57 | DVH ---
CHEST RADIOGRAPH Indication: RESP DISTRESS Technique: Single frontal view of the chest was obtained COMPARISON: XY CHEST XRAY 1 VIEW on DOS: 08/29/24, XY CHEST XRAY 1 VIEW on DOS: 08/29/24, XY CHEST PORT ABLE on DOS: 08/28/24, XY CHEST XRAY 1 VIEW on DOS: 04/22/24, XY CHEST XRAY 1 VIEW on DOS: 04/21/24 FINDINGS: Lines and Tubes: Lines and tubes unchanged. Lungs: Stable appearing diffuse increased prominence of the pulmonary vasculature. No evidence of foc al consolidation. Pleura: No definite effusion. No pneumothorax. Cardiomediastinal contours: Cardiomegaly. Bones: Unremarkable IMPRESSION: 1. Stable appearing diffuse increased prominence of the pulmonary vasculature. 2. Cardiomegaly. 3. Lines and tubes unchanged.
[2024-08-30 06:03] LABS: Hemoglobin 15.2 g/dL (13.5-17.5); Mean Corpuscular Hemoglobin 28.9 pg (28.0-32.0); Mean Corpuscular Hgb Conc. 31.1 g/dL (32.0-36.0); Platelet Count (auto) 87 10^3/uL (140-450); Red Blood Cells 5.27 10^6/uL (4.5-5.90); Red Cell Distribution Width 15.3 % (11.8-14.3); White Blood Cell 17.3 10^3/uL (4.4-10.8)
[2024-08-30 07:07] LABS: Basophils % (manual) 0 (0.0-2.0); Blast Cells 0; Eosinophils % (manual) 0 (0-7); Metamyelocytes % 0; Myelocytes % 0; Promyelocytes % 0; Reactive Lymphocytes 0
[2024-08-30 08:04] LABS: Band Neutrophils % (manual) 35; Lymphocytes % (manual) 12 (10.0-50.0); Monocytes % (manual) 6 (0-12); Platelet Estimate Adequate
[2024-08-30 08:07] LABS: PSA Free 1.58 ng/mL; Prostate Specific Antigen 2.9 ng/mL (0.0-4.0)
[2024-08-30] MEDS: PANTOPRAZOLE 40 MG/10 ML VIAL INJ IV SCH (08:12)
[2024-08-30 08:44] LABS: Base Excess -22.1 mmol/L (-2.0-3.0)
[2024-08-30 08:45] LABS: Albumin 3.9 g/dL (3.2-4.8); Anion Gap 20 (5-15); BUN/Creatinine Ratio 9.5 (10.0-20.0); Glucose 78 mg/dL (74-106); Magnesium 2.5 mg/dL (1.6-2.6); Total Protein 7.2 g/dL (5.7-8.2)
[2024-08-30] MEDS: SODIUM BICARB 8.4% 50Meq/50ml SYR Vial IV ONE ×2 (08:45→09:00)
[2024-08-30 08:48] LABS: Sodium 130 mmol/L (136-145)
[2024-08-30 08:49] LABS: Alkaline Phosphatase 191 U/L (46-116); Bilirubin, Total 2.3 mg/dL (0.2-1.0); Blood Urea Nitrogen 52 mg/dL (9-23); Calcium 7.1 mg/dL (8.7-10.4); Carbon Dioxide 12 mmol/L (20-31); Chloride 98 mmol/L (98-107)
[2024-08-30 08:50] LABS: Potassium 7.4 mmol/L (3.5-5.1)
[2024-08-30] MEDS: InsuLIN REG 1unit/0.01ml Soln (100units/ml) IV ONE ×2 (09:00→12:59)
[2024-08-30] MEDS: FUROSEMIDE 40 MG/4 ML VIAL IV ONE (09:00)
[2024-08-30] MEDS: DEXTROSE (50%) 50ML SYRG IV ONE ×2 (09:00→12:54)
[2024-08-30] MEDS: CALCIUM GLUC 1,000mg/50ml-NS 50 ML IV ONE ×3 (09:00→12:55)
[2024-08-30] MEDS: SODIUM BICARB 8.4% 50Meq/50ml SYR INJ IV ONE ×2 (09:00→12:55)
[2024-08-30] MEDS: HYDROCORTISONE SOD SUCC 100 MG/2ML INJ VIAL IV ONE (09:01)
[2024-08-30] MEDS: ALBUTEROL SULF 2.5 MG/0.5ML(0.5%) NEB SOLN ONE (09:09)
[2024-08-30] MEDS: FUROSEMIDE 40 MG/4 ML VIAL ONE (09:13)
--- NOTE | 2024-08-30 09:19 | DVHPN2 ---
Progress Note Date Seen: Aug 30, 2024 Medical Necessity Reason Pt with a Central, PICC or Fol: Yes The following are medically ne: Craig Catheter Subjective Patient reports: Feels worse (maxon 4 pressors, k 7.4, anuric, skin is moittled) Review of Systems: RESPIRATORY:Abnormal Objective vital signs Vital Sign Date Time Temp Pulse Resp B/P (MAP) Pulse Ox O2 Delivery O2 Flow Rate FiO2 08/30/24 08:08 93/26 08/30/24 08:00 100.6 63 22 99 213.1 08/30/24 07:58 Mechanical Ventilator+ 100 100 08/28/24 20:45 6 Total Intake and Output 08/29/24 08/29/24 08/30/24 15:00 23:00 07:00 Intake Total 1381.816 ml 2112.629 ml 2197.561 ml Output Total 1700 ml 200 ml Balance 1381.816 ml 412.629 ml 1997.561 ml medications Current Medications Medications Dose Ordered Sig/Ace Route Start Time Stop Time Status Last Admin Dose Admin Vasopressin 20 units/Sodium Chloride 100 ml @ 9 mls/hr Q11H7M IV 08/28/24 22:00 08/30/24 05:44 9 MLS/HR Midazolam HCl 50 ml @ 1 mls/hr Q24H IV 08/28/24 22:30 08/30/24 02:26 8 MLS/HR Fentanyl Citrate 250 ml @ 2.5 mls/hr Q24H IV 08/28/24 22:30 08/30/24 02:26 15 MLS/HR Dobutamine HCl/ Dextrose 250 ml @ 45 mls/hr Q5H34M IV 08/29/24 01:00 Cancel Dopamine HCl/ Dextrose 250 ml @ 28.125 mls/ hr Q8H54M IV 08/29/24 01:15 08/30/24 08:08 28.125 MLS/HR Acetaminophen 650 mg Q6HP PRN PO 08/29/24 03:45 08/30/24 01:40 650 MG Ondansetron HCl 4 mg Q4HP PRN IV 08/29/24 03:45 Enoxaparin Sodium 40 mg DAILY SC 08/29/24 10:00 08/29/24 10:00 40 MG Nitroglycerin 0.4 mg Q5MINP PRN SL 08/29/24 03:45 Morphine Sulfate 2 mg Q30M PRN IV 08/29/24 03:45 Vancomycin HCl 0 ml @ 0 mls/hr UD IV 08/29/24 03:45 Cefepime HCl 50 ml @ 12.5 mls/hr TID IV 08/29/24 06:00 08/30/24 05:40 12.5 MLS/HR Phenylephrine HCl 80 mg/Sodium Chloride 250 ml @ 7.5 mls/hr Q24H IV 08/29/24 05:30 08/30/24 02:29 33.75 MLS/HR Norepinephrine Bitartrate 32 mg/ Sodium Chloride 250 ml @ 0.938 mls/ hr Q24H IV 08/29/24 08:15 08/30/24 02:27 14.063 MLS/HR Epinephrine HCl 250 ml @ 7.5 mls/hr Q24H IV 08/29/24 16:15 Metronidazole 100 ml @ 100 mls/hr Q8HR IV 08/29/24 22:00 08/30/24 05:40 100 MLS/HR Diagnostic Test (Pha) 1 strip Q6HR 08/29/24 18:00 08/30/24 05:40 1 STRIP Pantoprazole Sodium 40 mg DAILY IV 08/30/24 10:00 08/30/24 08:12 40 MG Docusate Sodium 100 mg BID PRN GT 08/29/24 17:30 Dextrose 50 ml PRN PRN IV 08/30/24 02:15 08/30/24 08:25 50 ML Sodium Chloride 1,000 ml @ 100 mls/hr Q10H IV 08/30/24 03:00 08/30/24 03:00 100 MLS/HR Hydrocortisone Sodium Succinate 100 mg Q8HR IV 08/30/24 14:00 Sodium Bicarbonate 75 ml/ Dextrose 1,075 ml @ 100 mls/hr [id number] IV 08/30/24 09:00 UNV Examination: GENERAL:Abnormal, LUNGS:Abnormal, CVS:Abnormal, ABDOMEN:Abnormal, SKIN:Abnormal, NEURO:Abnormal laboratory and microbiology Laboratory Tests 08/30/24 08:12 08/30/24 05:24 Test 08/30/24 08:12 Range/Units Serum Glucose 78 74-106 mg/dL Microbiology Date/Time Source Procedure Growth Status 08/29/24 15:08 Voided Urine Urine Culture - Preliminary Resulted 08/28/24 20:45 Blood Blood Culture - Preliminary NO GROWTH AFTER 24 HOURS OF INCUBATION. 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 We discussed risk and benefits of dialysis at this time as well. Give instability dialysis has high risk of failure and cardiac arrest during procedure. Continue with pressors to maintain mean arterial pressure greater than 65 Avoid hypotension grim prognosis critical care time 70 mins Plan discussed with: Spouse My Orders My Orders Orders - VINEET PEARL MD Procedure Category Date Status Time Strict I & O KIRSTIN 08/29/24 In Process 16:52 Dietary Evaluation Review Comments: 1) EN Glucerna 1.2 Thomas @ 65ml/hr x 24hr(goal) along with Pro-stat 1 pk 4x/day. Start @ 30ml/hr increase 10ml/hr Q4H until goal is reached. water flush 50ml Q4H if allowed. TF at goal together with Pro-stat & water flush provides 1872 kcal (100%), 153gm protein (98%), and 1556 ml free water. 2) Consider TPN/PN if NPO>7 days 3) Advance diet as medically feasible 4) Continue current plan of care Expected Outcomes/Goals: Pt will meet >75% estimated needs Fu 2-3 days VINEET PEARL MD Aug 30, 2024 09:19
[2024-08-30] MEDS: ALBUTEROL SULF 2.5 MG/0.5ML(0.5%) NEB SOLN NEB ONE ×2 (09:28→13:20)
[2024-08-30] MEDS: SODIUM BICARB 50mEq/50ml Vial 75 ML in D5W 5% 1,000 ML IV SCH (10:00)
[2024-08-30 10:02] LABS: Aspartate Aminotransferase > 6000 U/L (13-40)
[2024-08-30 10:03] LABS: Alanine Aminotransferase 5265 U/L (7-40)
--- NOTE | 2024-08-30 10:22 | DVHPN2 ---
Progress Note - Dictate Date Seen: Aug 30, 2024 Medical Necessity Reason Pt with a Central, PICC or Fol: Yes The following are medically ne: Craig Catheter Subjective Patient is on multiple pressors. His made him DNR/DNI. vital signs Vital Sign Date Time Temp Pulse Resp B/P (MAP) Pulse Ox O2 Delivery O2 Flow Rate FiO2 08/30/24 10:09 24 100 Mechanical Ventilator+ 100 100 08/30/24 08:08 93/26 08/30/24 08:00 100.6 63 213.1 08/28/24 20:45 6 Total Intake and Output 08/29/24 08/29/24 08/30/24 15:00 23:00 07:00 Intake Total 1381.816 ml 2112.629 ml 2197.561 ml Output Total 1700 ml 200 ml Balance 1381.816 ml 412.629 ml 1997.561 ml medications Current Medications Medications Dose Ordered Sig/Ace Route Start Time Stop Time Status Last Admin Dose Admin Vasopressin 20 units/Sodium Chloride 100 ml @ 9 mls/hr Q11H7M IV 08/28/24 22:00 08/30/24 05:44 9 MLS/HR Midazolam HCl 50 ml @ 1 mls/hr Q24H IV 08/28/24 22:30 08/30/24 02:26 8 MLS/HR Fentanyl Citrate 250 ml @ 2.5 mls/hr Q24H IV 08/28/24 22:30 08/30/24 02:26 15 MLS/HR Dobutamine HCl/ Dextrose 250 ml @ 45 mls/hr Q5H34M IV 08/29/24 01:00 Cancel Dopamine HCl/ Dextrose 250 ml @ 28.125 mls/ hr Q8H54M IV 08/29/24 01:15 08/30/24 08:08 28.125 MLS/HR Acetaminophen 650 mg Q6HP PRN PO 08/29/24 03:45 08/30/24 01:40 650 MG Ondansetron HCl 4 mg Q4HP PRN IV 08/29/24 03:45 Enoxaparin Sodium 40 mg DAILY SC 08/29/24 10:00 08/29/24 10:00 40 MG Nitroglycerin 0.4 mg Q5MINP PRN SL 08/29/24 03:45 Morphine Sulfate 2 mg Q30M PRN IV 08/29/24 03:45 Vancomycin HCl 0 ml @ 0 mls/hr UD IV 08/29/24 03:45 Cefepime HCl 50 ml @ 12.5 mls/hr TID IV 08/29/24 06:00 08/30/24 05:40 12.5 MLS/HR Phenylephrine HCl 80 mg/Sodium Chloride 250 ml @ 7.5 mls/hr Q24H IV 08/29/24 05:30 08/30/24 02:29 33.75 MLS/HR Norepinephrine Bitartrate 32 mg/ Sodium Chloride 250 ml @ 0.938 mls/ hr Q24H IV 08/29/24 08:15 08/30/24 02:27 14.063 MLS/HR Epinephrine HCl 250 ml @ 7.5 mls/hr Q24H IV 08/29/24 16:15 Metronidazole 100 ml @ 100 mls/hr Q8HR IV 08/29/24 22:00 08/30/24 05:40 100 MLS/HR Diagnostic Test (Pha) 1 strip Q6HR 08/29/24 18:00 08/30/24 05:40 1 STRIP Pantoprazole Sodium 40 mg DAILY IV 08/30/24 10:00 08/30/24 08:12 40 MG Docusate Sodium 100 mg BID PRN GT 08/29/24 17:30 Dextrose 50 ml PRN PRN IV 08/30/24 02:15 08/30/24 08:25 50 ML Sodium Chloride 1,000 ml @ 100 mls/hr Q10H IV 08/30/24 03:00 08/30/24 03:00 100 MLS/HR Hydrocortisone Sodium Succinate 100 mg Q8HR IV 08/30/24 14:00 Sodium Bicarbonate 75 ml/ Dextrose 1,075 ml @ 100 mls/hr [id number] IV 08/30/24 09:00 objective General Appearance: Other (Ill-appearing, obese, sedated-intubated on mechanical ventilator) Respiratory: Other (Diminished air exchange. Tolerating mechanical ventilation) Cardiovascular: Regular rate, Normal S1, Normal S2 Abdominal: Soft, No tenderness Extremities: No clubbing, Other (BLE pulses 1+. Extremities cool to palpation. ) Skin: No rashes, No breakdown Neuro: Other (Patient is sedated, intubated on mechanical ventilator) Psych/Mental Status: Other (Unable to assess) laboratory and microbiology Laboratory Tests 08/30/24 08:12 08/30/24 05:24 Test 08/30/24 08:12 Range/Units Serum Glucose 78 74-106 mg/dL Assessment/Plan Patient is a 69-year-old male presents to the hospital with: Septic shock Bacteremia Severe OG on CKD Metabolic acidosis Altered mental status Urinary outlet obstruction S/P suprapubic catheter Acute respiratory failure with hypoxia S/P intubation on mechanical ventilator Acute on chronic CHF exacerbation Elevated troponin Acute urinary retention Diabetes mellitus DNR/DNI Recommendations: Patient is on multiple pressors, he is critically sick with end organ damage Follow blood and urine cultures Due to history of fall consider CT Head Continue broad spectrum IV Antibiotics for now Urology, Nephrology and Cardiology on board Patient's made him DNR/DNI Antibiotic status: Vancomycin IV [Started on 08/28 - Ongoing] Cefepime IV [Started on 08/28 - Ongoing] Flagyl IV [Started on 08/01 - Ongoing] 08/29, Vancomycin random is 10.7 WBC elevated, we will monitor Creatinine elevated 08/28, Blood culture showed Gram Positive Cocci in chains Patient is critically sick. Prognosis is very poor Critical Time: 35 minutes spent during encounter. Thank you for consult Dietary Evaluation Review Comments: 1) EN Glucerna 1.2 Thomas @ 65ml/hr x 24hr(goal) along with Pro-stat 1 pk 4x/day. Start @ 30ml/hr increase 10ml/hr Q4H until goal is reached. water flush 50ml Q4H if allowed. TF at goal together with Pro-stat & water flush provides 1872 kcal (100%), 153gm protein (98%), and 1556 ml free water. 2) Consider TPN/PN if NPO>7 days 3) Advance diet as medically feasible 4) Continue current plan of care Expected Outcomes/Goals: Pt will meet >75% estimated needs Fu 2-3 days GENESIS BUENO MD Aug 30, 2024 10:22
[2024-08-30] MEDS: SODIUM BICARB 50mEq/50ml Vial 150 ML in D5W 5% 1,000 ML IV SCH (11:00)
[2024-08-30] MEDS ORDERED: SODIUM BICARB 8.4% 50Meq/50ml SYR INJ IV ONE (11:54)
[2024-08-30] MEDS: HYDROCORTISONE SOD SUCC 100 MG/2ML INJ VIAL IV SCH (14:00)
[2024-08-30] MEDS ORDERED: HYOSCYAMINE SULF 0.125 MG ODT TAB PO PRN (14:00)
[2024-08-30] MEDS ORDERED: HYDROmorphone HCL 2 MG/ML VL/or syr IV PRN (14:00)
[2024-08-30] MEDS: LORazepam 2MG/ML-1ML VIAL IV PRN (14:20)
[2024-08-30] MEDS: MORPHINE SULFATE 4 MG/ML SYR/VIAL IV PRN (14:20)
[2024-08-30] MEDS: VANCOMYCIN 1GM/250ML KIT 250 ML IV ONE (14:30)
--- NOTE | 2024-08-30 15:33 | DVHDS2 ---
Summary Date of Admission Aug 29, 2024 at 03:44 Date and Time of Expiration: Aug 30, 2024 14:55 Labs/Diagnostic Data: Laboratory Results Test 08/30/24 12:38 08/30/24 11:43 08/30/24 08:34 08/30/24 08:12 POC Glucose 115 mg/dl (70-106) Potassium Level 7.8 mmol/L (3.5-5.1) Blood Gas Specimen Type Arterial Blood Gas Sample Site Left brachial Blood Gas Patient Temperature 37.0 Arterial Blood Date Drawn [id number] Arterial Blood pH 6.973 (7.350-7.450) Arterial Blood Partial Pressure CO2 40.7 mmHg (35.0-48.0) Arterial Blood Partial Pressure O2 105.0 mmHg (83.0-108.0) Arterial Blood HCO3 9.2 mmol/L (21.0-28.0) Arterial Blood Oxygen Saturation 97.1 % (94.0-98.0) Arterial Blood Base Excess -22.1 mmol/L (-2.0-3.0) Arterial Blood Oxyhemoglobin 95.7 % (94.0-98.0) Arterial Blood Carboxyhemoglobin 1.2 % (0.5-1.5) Arterial Blood Methemoglobin 0.2 % (0.0-1.5) Mikal Test N/a Blood Gas Total Hemoglobin 14.70 g/dL (13.5-17.5) Blood Gas Set Respiration Rate 24.0 Blood Gas Modality Vent - ac FiO2 % 100.0 Blood Gas Tidal Volume 550.0 Blood Gas PEEP or CPAP 8.0 Blood Gas Critical Value Read Back Yes Blood Gas Notified Whom Hammad mauricio Blood Gas Notified Time [id number] Blood Gas Notified By Trudi cerda Sodium Level 130 mmol/L (136-145) Chloride Level 98 mmol/L (98-107) Carbon Dioxide Level 12 mmol/L (20-31) Anion Gap 20 (5-15) Blood Urea Nitrogen 52 mg/dL (9-23) Creatinine 5.47 mg/dL (0.700-1.30) Glomerular Filtration Rate Calc 11 mL/min (>90) BUN/Creatinine Ratio 9.5 (10.0-20.0) Serum Glucose 78 mg/dL (74-106) Lactic Acid Level 8.5 mmol/L (0.4-2.0) Calcium Level 7.1 mg/dL (8.7-10.4) Magnesium Level 2.5 mg/dL (1.6-2.6) Total Bilirubin 2.3 mg/dL (0.2-1.0) Aspartate Amino Transferase (AST) > 6000 U/L (13-40) Alanine Aminotransferase (ALT) 5265 U/L (7-40) Alkaline Phosphatase 191 U/L (46-116) Total Protein 7.2 g/dL (5.7-8.2) Albumin 3.9 g/dL (3.2-4.8) Test 08/30/24 05:24 08/29/24 16:54 08/29/24 15:08 08/29/24 12:56 White Blood Count 17.3 10^3/uL (4.4-10.8) Red Blood Count 5.27 10^6/uL (4.5-5.90) Hemoglobin 15.2 g/dL (13.5-17.5) Hematocrit 49.0 % (41.0-53.0) Mean Corpuscular Volume 93.0 fL (80.0-100.0) Mean Corpuscular Hemoglobin 28.9 pg (28.0-32.0) Mean Corpuscular Hemoglobin Concent 31.1 g/dL (32.0-36.0) Red Cell Distribution Width 15.3 % (11.8-14.3) Platelet Count 87 10^3/uL (140-450) Mean Platelet Volume 9.8 fL (6.9-10.8) Neutrophils (%) (Auto) % (37.0-80.0) Lymphocytes (%) (Auto) % (10.0-50.0) Monocytes (%) (Auto) % (0.0-12.0) Basophils (%) (Auto) % (0.0-2.0) Neutrophils # (Auto) 10 ^3/uL (1.6-8.6) Lymphocytes # (Auto) 10 ^3/uL (0.4-5.4) Monocytes # (Auto) 10 ^3/uL (0-1.3) Differential Total Cells Counted 100.0 (100) Neutrophils % (Manual) 47 (37.0-80.0) Band Neutrophils % (Manual) 35 Lymphocytes % (Manual) 12 (10.0-50.0) Monocytes % (Manual) 6 (0-12) Eosinophils % (Manual) 0 (0-7) Basophils % (Manual) 0 (0.0-2.0) Metamyelocytes % (manual) 0 Myelocytes % (Manual) 0 Promyelocytes % (Manual) 0 Blast Cells % (Manual) 0 Reactive Lymphocytes 0 Platelet Estimate Adequate Random Vancomycin Level 16.7 ug/mL (5-10) Influenza Type A Antigen Negative (Negative) Influenza Type B Antigen Negative (Negative) SARS-CoV-2 Antigen (Rapid) Negative (NEGATIVE) Urine Color Yellow (Yellow) Urine Clarity Turbid (Clear) Urine pH 6.5 (5.0-9.0) Urine Specific [place] 1.014 (1.001-1.035) Urine Protein 1+ (Negative) Urine Ketones Negative (Negative) Urine Blood 2+ /uL (Negative) Urine Nitrite Negative (Negative) Urine Bilirubin Negative (Negative) Urine Urobilinogen Normal mg/dL (Negative) Urine Leukocyte Esterase 2+ /uL (Negative) Urine RBC 3 /hpf (0 - 3) Urine Microscopic WBC 22 /HPF (0-3) Urine Squamous Epithelial Cells None seen /hpf (<5) Urine Bacteria Few /hpf (None Seen) Urine Mucus Few (None Seen) Urine Glucose Normal mg/dL (Normal) Blood Gas Spontaneous Rate 24 Test 08/29/24 04:56 08/28/24 23:31 08/28/24 20:45 Prothrombin Time 12.0 sec (9.3-11.8) Prothrombin Time INR 1.15 (0.9-1.15) Activated Partial Thromboplast Time 31.2 SEC (24.5-34.5) Free Prostate Specific Antigen 1.58 ng/mL (N/A) Percent Free Prostate Specific Ag 54.5 % (.) Prostate Specific Antigen Total 2.9 ng/mL (0.0-4.0) Troponin I High Sensitivity 67 ng/L (</=54) B-Type Natriuretic Peptide 820.23 pg/mL (0-100) Lipase 40 U/L (12-53) Other Laboratory Tests 08/30/24 11:43 08/30/24 08:12 08/30/24 05:24 Brief Hx & Hospital Course: 69-year-old male with previous history of small bowel surgery in the past brought in by paramedics with a dizziness. Patient had a fall 5 days ago, hurt his left side of his chest with noted bruising patient has started having dizziness headache and diaphoresis on scene with dysuria urinary frequency found to be hypotensive and hypoxic in the ER status post intubation on mechanical ventilation. Patient also had urinary retention status post suprapubic catheter by the intervention Radiology. Patient was diagnosed with septic shock secondary to Gram-positive bacteremia. Patient was on multiple pressors and on broad-spectrum IV antibiotics. Pulmonary, Urology as well as Infectious Disease was following the patient as well as Nephrology. Patient went into multiorgan failure eventually family requested DNR/DNI after myself and front office director explained to them in detail the poor prognosis of this patient. Patient was eventually made comfort measures and . 1. Acute hypoxic respiratory failure status post intubation currently on mechanical ventilation with FiO2 of 80% 2. Hypovolemic/septic shock secondary to suspected pneumonia, Gram-positive bacteremia 3. Gram-positive bacteremia 4. Leukocytosis likely reactive secondary to underlying sepsis 5. Lactic acidosis 6. Acute kidney injury suspect he is going to need to be supplemented nephropathy/lisinopril induced and Lasix induced 7. Acute metabolic/septic encephalopathy 8. Urinary retention status post suprapubic catheter placement by IR 9. Elevated troponin suspect demand ischemia/decreased renal clearance, does not seem to be acute coronary syndrome 10. Morbid obesity class III -continue broad-spectrum IV antibiotics, IV vasopressors, infectious disease consultation, pulmonary consultation, keep them mechanical ventilation -follow up CT chest abdomen months patient FiO2 is at baseline -plan of care discussed with patient's and other family members including daughters at bedside in the presence of nurse roxy cobb and 1 mod administrative nursing supervisor -all the questions were answered, patient remains critical prognosis remain guarded. Final Diagnosis/Problems List Causes of : 1. Acute hypoxic respiratory failure 2. Septic shock 3. Gram-positive bacteremia Secondary Diagnosis: Multi organ failure Discharge Disposition: at Hospital NUHA MORALES MD Aug 30, 2024 15:33
--- NOTE | 2024-08-30 22:45 | DVHPN2 ---
Progress Note - Dictate Date Seen: Aug 30, 2024 Medical Necessity Reason Pt with a Central, PICC or Fol: Yes The following are medically ne: Craig Catheter Subjective Patient seen and examined at bedside. Sedated, intubated on mechanical ventilator. Overnight events reviewed. vital signs Vital Sign Date Time Temp Pulse Resp B/P (MAP) Pulse Ox O2 Delivery O2 Flow Rate FiO2 08/30/24 15:32 101.3 0 214.3 08/30/24 14:32 76 79 08/30/24 14:04 100 08/30/24 14:02 Mechanical Ventilator+ 08/28/24 20:45 6 Total Intake and Output 08/29/24 08/29/24 08/30/24 15:00 23:00 07:00 Intake Total 1381.816 ml 2112.629 ml 2197.561 ml Output Total 1700 ml 200 ml Balance 1381.816 ml 412.629 ml 1997.561 ml medications Current Medications Medications Dose Ordered Sig/Ace Route Start Time Stop Time Status Last Admin Dose Admin Dobutamine HCl/ Dextrose 250 ml @ 45 mls/hr [id number] IV 08/29/24 01:00 Cancel objective Gen.: Patient lying in bed in medical ICU. Sedated, intubated on mechanical ventilator. Head: Normocephalic, atraumatic. Eyes: PERRLA. Ears: Normal external anatomy. Throat: Endotracheal tube and orogastric tube in place. Neck: Supple, trachea midline. Chest: Transmitted breath sounds bilaterally. Decreased air entry bilaterally. No wheezing. Bibasilar crackles. Cardiovascular: Positive S1, positive S2. Regular rate and rhythm. Abdomen: Positive bowel sounds in all 4 quadrants. Soft, nontender, nondistended. : Craig in place. Normal external genitalia. Rectal: Deferred. Skin: Warm, dry. Intact. Extremities: 2+ radial pulses bilaterally. No lower extremity edema. Neuro: Sedated. laboratory and microbiology Laboratory Tests 08/30/24 11:43 08/30/24 08:12 08/30/24 05:24 Test 08/30/24 08:12 Range/Units Serum Glucose 78 74-106 mg/dL Assessment/Plan Impression: Acute hypoxic respiratory failure Acute hypercarbic respiratory failure On mechanical ventilator Acute on chronic CHF exacerbation Acute urinary retention Morbid obesity Events: Remains on vent support On AC mode; RR 24, VT 550, PEEP 8, FiO2 100% Sedated on Versed, Fentanyl ABG reviewed, notable for severe acidemia CXR reviewed, stable appearing diffuse increased prominence of the pulmonary vasculature. Cardiomegaly. On multiple pressors for hemodynamic support On Levophed, vasopressin, Triston-Synephrine, dopamine Titrate to keep mean arterial pressure greater than 65 mmHg. Stress dose steroids Bronchodilators Continue antibiotics IV fluids Accu-Cheks, ISS Overall poor prognosis Family agreed for compassionate extubation. Labs and imaging reviewed. Rest of plan as noted below. Plan: s/p intubation on mechanical ventilator. Multiple vent changes were made on 08/29 On AC mode; RR 24, VT 550, PEEP 8, FiO2 100% Titrate FIO2 to keep O2 saturation above 90%. VAP bundle. Daily ABG and CXR while intubated Sedate for ventilator synchrony Continue antibiotics. F/u cultures. On multiple pressors for hemodynamic support On Levophed, vasopressin, Triston-Synephrine, dopamine Titrate to keep mean arterial pressure greater than 65 mmHg. Monitor renal function Monitor electrolytes. Supplement as necessary. Monitor ins and outs. Magnesium supplementation Diet and lifestyle modifications for weight reduction Morbid obesity - complicates all care GI prophylaxis. DVT prophylaxis. Prognosis: Poor given patient's multiple co-morbidities. Condition: Critical Rest of plan per hospitalist and other consultants. A total of 35 minutes of critical care time was spent reviewing the patient record, examining the patient, making a diagnostic and therapeutic plan, discussing this plan with the medical personnel, following up on diagnostic studies and following the patient for clinical stability excluding any and all procedures. At least 50% of this time was spent in direct, [id number] contact. Thank you, LB Taylor, for allowing me to participate in this patient's care. Further recommendations will depend on the patient's clinical course. Please do not hesitate to contact me if you have any questions or concerns. This medical document was created using an electronic medical record system with [employer] system. Although these documentations are being carefully reviewed, there may still be some phonetic and typographical changes. The errors are purely typographical, due to imperfection on the software program, and do not reflect any compromise in the patient's medical care. Dietary Evaluation Review Comments: 1) EN Glucerna 1.2 Thomas @ 65ml/hr x 24hr(goal) along with Pro-stat 1 pk 4x/day. Start @ 30ml/hr increase 10ml/hr Q4H until goal is reached. water flush 50ml Q4H if allowed. TF at goal together with Pro-stat & water flush provides 1872 kcal (100%), 153gm protein (98%), and 1556 ml free water. 2) Consider TPN/PN if NPO>7 days 3) Advance diet as medically feasible 4) Continue current plan of care Expected Outcomes/Goals: Pt will meet >75% estimated needs Fu 2-3 days Plan discussed with: Other (JOSEPH Bertrand) Critical Care Time(min): 35 NGOZI REDD MD Aug 30, 2024 22:45
--- NOTE | 2024-09-01 08:23 | DVHSR ---
APPROVED REPORT EXAM: Two-dimensional and M-mode echocardiogram with Doppler and color Doppler. Blood Pressure: 97/59 mmHg INDICATION sepsis RISK FACTORS Obesity: Height: 5'11, Weight: 330 DIMENSIONS LVDd5.1 (3.8-5.7cm)LA (2D)4.3 (1.9-4.0cm)Aortic Root2.4 (2.0-3.7cm) LVDs3.8 (2.5-4.0cm)LA (MM) (1.9-4.0cm)Aortic Cusp Exc (1.5-2.0cm) EF (%) 50.0 (55-70%)Rt. Atrium4.5 (1.9-4.0cm)Asc. Aorta3.9 cm IVSd1.3 (0.7-1.1cm)RV (D) (1.8-2.4cm) PWd0.9 (0.7-1.1cm) Mitral Valve MitralMitral Stenosis E wave0.92m/sMV Mean GR.mmHg A wave0.55m/sMV Peak GR.52mmHg E/A ratio1.72D MVAcm2 DECEL [id number] 1/2 Timems Aortic Valve Aortic ValveAortic Stenosis V10.93m/Raul Mean GR.9mmHg V21.85m/Raul Peak GR.14mmHg LVOT Diameter2.4 (1.8-2.4cm)Doppler AVA2.27cm2 Pulmonic Valve V20.77m/s Tricuspid Valve TR Velocity2.74m/s [id number] Other Information Quality : Technically LimitedRhythm : Technically limited study due to patient position.on vent.body habitus. Conclusion lvef 55% mild LVH RV enlarged moderate aortic sclerosis is noted, calcific, no severe valve abnormaliteis noted
== END 2024-08-30 18:07 | DRG 871 ==
LOC: EDBD 20:22 → ER 20:22 → OVERFLOW 08-29 03:44 → ICU CENTRL 08-29 03:55
PROVIDERS: ADMIT Nurse Practitioner Family; ATTEND Nurse Practitioner Family
PROC: 0T9B30Z Drainage of Bladder with Drainage Device, Percutaneous Approach (ICD-10-PCS; principal; 2024-08-29)
PROC: 5A1945Z Respiratory Ventilation, 24-96 Consecutive Hours (ICD-10-PCS; 2024-08-29)
PROC: 06HY33Z Insertion of Infusion Device into Lower Vein, Percutaneous Approach (ICD-10-PCS; 2024-08-29)
PROC: 0BH17EZ Insertion of Endotracheal Airway into Trachea, Via Natural or Artificial Opening (ICD-10-PCS; 2024-08-29)
DX: A41.89 Other specified sepsis (principal); G93.41 Metabolic encephalopathy; J96.02 Acute respiratory failure with hypercapnia; J96.01 Acute respiratory failure with hypoxia; R65.21 Severe sepsis with septic shock; J18.9 Pneumonia, unspecified organism; E87.20 Acidosis, unspecified; I13.0 Hypertensive heart and chronic kidney disease with heart failure and stage 1 through stage 4 chronic kidney disease, or unspecified chronic kidney disease; N13.8 Other obstructive and reflux uropathy; N39.0 Urinary tract infection, site not specified; N17.9 Acute kidney failure, unspecified; Z68.42 Body mass index [BMI] 45.0-49.9, adult; I24.89 Other forms of acute ischemic heart disease; Z66 Do not resuscitate; Z20.822 Contact with and (suspected) exposure to COVID-19; B96.89 Other specified bacterial agents as the cause of diseases classified elsewhere; E86.1 Hypovolemia; E78.5 Hyperlipidemia, unspecified; E66.01 Morbid (severe) obesity due to excess calories; I50.9 Heart failure, unspecified; I25.10 Atherosclerotic heart disease of native coronary artery without angina pectoris; E11.22 Type 2 diabetes mellitus with diabetic chronic kidney disease; N18.30 Chronic kidney disease, stage 3 unspecified; N40.1 Benign prostatic hyperplasia with lower urinary tract symptoms; Z83.3 Family history of diabetes mellitus; Z51.5 Encounter for palliative care; Z79.899 Other long term (current) drug therapy
CPT/HCPCS: 31500; 36415; 36556; 36600; 71045; 76942; 80048; 80053; 80202; 81001; 82805; 82962; 83605; 83690; 83735; 83880; 84132; 84154; 84484; 85007; 85027; 85610; 85730; 87040; 87070; 87081; 87086; 87205; 87426; 87804; 93005; 93306; 94002; 94003; 94640; 96374; 96375; 99152; 99153; 99291; G0378; J0131; J0692; J2470; J3490